=== PATIENT | male | born 1960 | race Two or more races ===

== ENCOUNTER 2017-05-18 09:55 | Emergency (ER) | payer OTHER ==
[2017-05-18 10:01] VITALS: BP 157/103; PULSE 84; TEMP 98; BMI 40.1
== END 2017-05-18 11:24 | disposition left against medical advice (07) ==
LOC: JERFT 09:55
DX: Z53.21 Procedure and treatment not carried out due to patient leaving prior to being seen by health care provider (principal)
CPT/HCPCS: 99281-25

== ENCOUNTER 2018-01-19 16:18 | Emergency (ER) | payer OTHER ==
--- NOTE | 2018-01-19 16:24 | PDOC ---
Rapid Medical Evaluation Time Seen by Provider: 01/19/18 16:19 Medical Evaluation: Allergies Allergy/AdvReac Type Severity Reaction Status Date / Time No Known Allergies Allergy Verified 05/18/17 10:01 01/19/18 16:21 The patient presents with a chief complaint of: Blood in urine for one hour. On Xarelto I have performed a brief in-person evaluation of this patient; Pertinent physical exam findings: ambulatory, in no respiratory distress, No CVA tenderness, Abdomen soft, nontender, no rebound or guarding I have ordered the following: CBC, CMP, UA, UC, PT/INR The patient will proceed to the ED for further evaluation.
[2018-01-19 16:30] VITALS: BP 143/83; PULSE 114; TEMP 98.2; BMI 48.4
[2018-01-19 16:55] LABS: BASO % 0.7 % (0-2.0); EOS % 1.8 % (0-4.5); HEMATOCRIT 46.4 % (35.4-49); HEMOGLOBIN 15.8 GM/dL (11.7-16.9); LYMPH % 11.9 % (8-40); MCH 29.4 pg (25.7-33.7); MCHC 34.1 g/dl (32.0-35.9); MEAN PLT VOLUME 9.1 fl (7.5-11.1); MONO % 9.5 % (3.8-10.2); NEUT % 76.1 % (42.8-82.8); PLATELET COUNT 231 K/MM3 (134-434); RDW 13.5 % (11.9-15.9); WHITE BLOOD COUNT 15.5 K/mm3 (4.0-10.0)
[2018-01-19 16:56] LABS: URINE APPEARANCE CLOUDY; URINE BILIRUBIN NEGATIVE (NEGATIVE); URINE BLOOD 3+ (NEGATIVE); URINE COLOR YELLOW; URINE GLUCOSE (UA) NEGATIVE (NEGATIVE); URINE KETONE NEGATIVE (NEGATIVE); URINE NITRITE NEGATIVE (NEGATIVE); URINE UROBILINOGEN NEGATIVE mg/dL (0.2-1.0)
[2018-01-19 17:15] LABS: URINE LEUK ESTERASE 3+ (NEGATIVE); URINE PROTEIN 2+ (NEGATIVE)
[2018-01-19 17:25] LABS: INR 1.22 (0.82-1.09); PROTHROMBIN TIME (PATIENT) 13.8 SEC (9.98-11.88)
[2018-01-19 17:26] LABS: ALBUMIN 3.4 g/dl (3.4-5.0); ANION GAP 11 (8-16); BILIRUBIN,TOTAL 0.4 mg/dL (0.2-1.0); BLOOD UREA NITROGEN 17 mg/dL (7-18); CALCIUM 8.6 mg/dL (8.5-10.1); CHLORIDE 100 mmol/L (98-107); CO2 28 mmol/L (21-32); CREATININE 0.9 mg/dL (0.7-1.3); GLUCOSE,RANDOM 104 mg/dL (74-106); POTASSIUM 4.1 mmol/L (3.5-5.1); SGPT/ALT 21 U/L (12-78); SODIUM 139 mmol/L (136-145); TOT PROT 7.2 g/dl (6.4-8.2)
[2018-01-19 17:27] LABS: ALK PHOS 142 U/L (45-117); SGOT/AST 15 U/L (15-37)
[2018-01-19 18:52] LABS: CALCIUM OXALATE CRYSTALS MODERATE /hpf (NONE SEEN); URINE BACTERIA RARE /hpf (NONE SEEN)
--- NOTE | 2018-01-19 20:20 | PDOC ---
History of Present Illness - General History Source: Patient Exam Limitations: No Limitations - History of Present Illness Initial Comments: 01/19/18 20:25 The patient is a year old female with a significant PMH of AFib (on Xarelto), CHF, COPD, HTN, and hyperlipidemia who presents to the emergency department with a sudden onset of dysuria and hematuria beginning approximately 1 hour ago. The patient reports he has had a similar episode of hematuria and burning sensation when he urinates in the past. He denies fevers or chills. He denies nausea, vomiting, or diarrhea. The patient denies chest pain, shortness of breath, headache and dizziness. Denies urinary frequency, urgency, or incontinence. Allergies: NKA Past surgical history: Cardiac catheter placement. Social history: Former smoker (quit 3 years ago). No reported alcohol or drug use. PCP: None reported. <Kaiden Rueda - Last Filed: 01/19/18 20:25> - General History Source: Patient <Greg Peterson - Last Filed: 01/19/18 20:28> - General Chief Complaint: Hematuria Stated Complaint: BLOOD IN URINE on XARELTO Time Seen by Provider: 01/19/18 16:19 Past History <Kaiden Rueda - Last Filed: 01/19/18 20:25> - Past Medical History Anemia: No Asthma: No Cancer: No Cardiac Disorders: Yes (A FIB) CVA: No COPD: Yes CHF: No Dementia: No Diabetes: No GI Disorders: No Disorders: No HTN: Yes Hypercholesterolemia: Yes Liver Disease: No Seizures: No Thyroid Disease: No - Surgical History Abdominal Surgery: No Appendectomy: No Cardiac Surgery: Yes (CARD CATH) Cholecystectomy: No Lung Surgery: No Neurologic Surgery: No Orthopedic Surgery: No - Immunization History Immunization Up to Date: Yes - Suicide/Smoking/Psychosocial Hx Smoking History: Never smoked Have you smoked in the past 12 months: No If you are a former smoker, when did you quit?: 3 YEARS AGO Information on smoking cessation initiated: No 'Breaking Loose' booklet given: 08/18/14 Hx Alcohol Use: No Drug/Substance Use Hx: No Substance Use Type: None <Greg Peterson - Last Filed: 01/19/18 20:28> - Past Medical History Allergies/Adverse Reactions: Allergies Allergy/AdvReac Type Severity Reaction Status Date / Time No Known Allergies Allergy Verified 01/19/18 16:30 Home Medications: Ambulatory Orders Atorvastatin Ca [Lipitor -] 40 mg PO HS 08/06/15 Digoxin [Lanoxin -] 0.25 mg PO DAILY 08/06/15 Furosemide [Lasix -] 20 mg PO DAILY 08/06/15 Lisinopril [Zestril] 2.5 mg PO DAILY 08/06/15 Metoprolol Succinate [Toprol Xl -] 175 mg PO DAILY 08/06/15 Omeprazole [Prilosec (RX)] 40 mg PO DAILY 08/06/15 Rivaroxaban [Xarelto -] 20 mg PO DAILY 08/06/15 Oxycodone HCl/Acetaminophen [Percocet 5-325 mg Tablet] 2 tab PO Q6H PRN #20 tablet MDD 8 03/30/16 levoFLOXacin [Levaquin -] 500 mg PO DAILY #7 tablet 01/19/18 Review of Systems - Review of Systems Able to Perform ROS?: Yes Comments:: 01/19/18 20:25 CONSTITUTIONAL: Absent: fever, chills, diaphoresis, generalized weakness, malaise, loss of appetite HEENT: Absent: rhinorrhea, nasal congestion, throat pain, throat swelling, difficulty swallowing, mouth swelling, ear pain, eye pain, visual Changes CARDIOVASCULAR: Absent: chest pain, syncope, palpitations, irregular heart rate, lightheadedness , peripheral edema RESPIRATORY: Absent: cough, shortness of breath, dyspnea with exertion, orthopnea, wheezing, stridor, hemoptysis GASTROINTESTINAL: Absent: abdominal pain, abdominal distension, nausea, vomiting, diarrhea, constipation, melena, hematochezia GENITOURINARY: (+) Dysuria. (+) Hematuria. Absent: dysuria, frequency, urgency, hesitancy, hematuria, flank pain, genital pain MUSCULOSKELETAL: Absent: myalgia, arthralgia, joint swelling SKIN: Absent: rash, itching, pallor HEMATOLOGIC/IMMUNOLOGIC: Absent: easy bleeding, easy bruising, lymphadenopathy, frequent infections ENDOCRINE: Absent: unexplained weight gain, unexplained weight loss, heat intolerance, cold intolerance NEUROLOGIC: Absent: headache, focal weakness or paresthesias, dizziness, unsteady gait, seizure, mental status changes, bladder or bowel incontinence PSYCHIATRIC: Absent: anxiety, depression, suicidal or homicidal ideation, hallucinations. <Kaiden Rueda - Last Filed: 01/19/18 20:25> *Physical Exam - Vital Signs Last Vital Signs Temp Pulse Resp BP Pulse Ox 98.2 F 114 H 17 143/83 98 01/19/18 16:29 01/19/18 16:29 01/19/18 16:29 01/19/18 16:29 01/19/18 16:29 - Physical Exam Comments: 01/19/18 20:25 GENERAL: Well developed, well nourished. Awake and alert. No acute distress. HEENT: Normocephalic, atraumatic. PERRLA, EOMI. No conjunctival pallor. Sclera are non- icteric. Moist mucous membranes. Oropharynx is clear. NECK: Supple. Full ROM. No JVD. Carotid pulses 2+ and symmetric, without bruits. No thyromegaly. No lymphadenopathy. CARDIOVASCULAR: Regular rate and rhythm. No murmurs, rubs, or gallops. Distal pulses are 2+ and symmetric. PULMONARY: No evidence of respiratory distress. Lungs clear to auscultation bilaterally. No wheezing, rales or rhonchi. ABDOMINAL: Soft. Non-tender. Non-distended. No rebound or guarding. No organomegaly. Normoactive bowel sounds. MUSCULOSKELETAL Normal range of motion at all joints. No bony deformities or tenderness. No CVA tenderness. EXTREMITIES: No cyanosis. No clubbing. No edema. No calf tenderness. SKIN: Warm and dry. Normal capillary refill. No rashes. No jaundice. NEUROLOGICAL: Alert, awake, appropriate. Cranial nerves 2-12 intact. No deficits to light touch and temperature in face, upper extremities and lower extremities. No motor deficits in the in face, upper extremities and lower extremities. Normoreflexic in the upper and lower extremities. Normal speech. Toes are downgoing bilaterally. Gait is normal without ataxia. PSYCHIATRIC: Cooperative. Good eye contact. Appropriate mood and affect. <Kaiden Rueda - Last Filed: 01/19/18 20:25> - Vital Signs Last Vital Signs Temp Pulse Resp BP Pulse Ox 98.2 F 114 H 17 143/83 98 01/19/18 16:29 01/19/18 16:29 01/19/18 16:29 01/19/18 16:29 01/19/18 16:29 <Greg Peterson Last Filed: 01/19/18 20:28> ED Treatment Course - LABORATORY CBC & Chemistry Diagram: 01/19/18 16:42 01/19/18 16:42 - ADDITIONAL ORDERS Additional order review: Laboratory Results 01/19/18 01/19/18 01/19/18 16:43 16:42 16:42 PT with INR 13.80 H INR 1.22 H Sodium 139 Potassium 4.1 Chloride 100 Carbon Dioxide 28 Anion Gap 11 BUN 17 D Creatinine 0.9 Creat Clearance w eGFR > 60 Random Glucose 104 Calcium 8.6 Total Bilirubin 0.4 D AST 15 ALT 21 Alkaline Phosphatase 142 H Total Protein 7.2 Albumin 3.4 Urine Color Yellow Urine Appearance Cloudy Urine pH 6.0 Ur Specific [place] 1.017 Urine Protein 2+ H Urine Glucose (UA) Negative Urine Ketones Negative Urine Blood 3+ H Urine Nitrite Negative Urine Bilirubin Negative Urine Urobilinogen Negative Ur Leukocyte Esterase 3+ H Urine WBC (Auto) 249 Urine RBC (Auto) 426 Calcium Oxalate Crystal Moderate Urine Bacteria Rare 01/19/18 16:42 RBC 5.40 MCV 86.0 MCHC 34.1 RDW 13.5 MPV 9.1 Neutrophils % 76.1 Lymphocytes % 11.9 D Monocytes % 9.5 Eosinophils % 1.8 Basophils % 0.7 <Kaiden Rueda - Last Filed: 01/19/18 20:25> - LABORATORY CBC & Chemistry Diagram: 01/19/18 16:42 01/19/18 16:42 - ADDITIONAL ORDERS Additional order review: Laboratory Results 01/19/18 01/19/18 01/19/18 16:43 16:42 16:42 PT with INR 13.80 H INR 1.22 H Sodium 139 Potassium 4.1 Chloride 100 Carbon Dioxide 28 Anion Gap 11 BUN 17 D Creatinine 0.9 Creat Clearance w eGFR > 60 Random Glucose 104 Calcium 8.6 Total Bilirubin 0.4 D AST 15 ALT 21 Alkaline Phosphatase 142 H Total Protein 7.2 Albumin 3.4 Urine Color Yellow Urine Appearance Cloudy Urine pH 6.0 Ur Specific [place] 1.017 Urine Protein 2+ H Urine Glucose (UA) Negative Urine Ketones Negative Urine Blood 3+ H Urine Nitrite Negative Urine Bilirubin Negative Urine Urobilinogen Negative Ur Leukocyte Esterase 3+ H Urine WBC (Auto) 249 Urine RBC (Auto) 426 Calcium Oxalate Crystal Moderate Urine Bacteria Rare 01/19/18 16:42 RBC 5.40 MCV 86.0 MCHC 34.1 RDW 13.5 MPV 9.1 Neutrophils % 76.1 Lymphocytes % 11.9 D Monocytes % 9.5 Eosinophils % 1.8 Basophils % 0.7 <Greg Peterson - Last Filed: 01/19/18 20:28> Medical Decision Making - Medical Decision Making 01/19/18 20:23 Dr. Peterson: The scribe's documentation has been prepared under my direction and personally reviewed by me in its entirery. I confirm that the note above accurately reflects all work, treatment, procedures, and medical decision making performed by me. Patient on Xarelto for CAD. Pt has sudden onset of hematuria. Rx Levaquin 500mg PO Pt to follow up with urology <Greg Peterson - Last Filed: 01/19/18 20:28> *DC/Admit/Observation/Transfer - Attestations Scribe Attestion: 01/19/18 20:25 Documentation prepared by Kaiden Rueda, acting as medical aide for Greg Peterson DO. <Kaiden Rueda - Last Filed: 01/19/18 20:25> - Discharge Dispostion Admit: No <Greg Peterson - Last Filed: 01/19/18 20:28> Diagnosis at time of Disposition: UTI (lower urinary tract infection), Cystitis - Discharge Dispostion Disposition: HOME Condition at time of disposition: Stable - Prescriptions Prescriptions: levoFLOXacin [Levaquin -] 500 mg PO DAILY #7 tablet - Referrals Referrals: Irvin Brown MD [Staff Physician] - - Patient Instructions Printed Discharge Instructions: DI for Urinary Tract Infection (UTI), DI for Acute Cystitis Additional Instructions: Please follow up with your doctor or the doctor referred to you in two days for re-evaluation.
== END 2018-01-19 20:30 | disposition home or self-care (01) ==
LOC: JER 16:18
DX: N30.01 Acute cystitis with hematuria (principal); I48.91 Unspecified atrial fibrillation; Z79.01 Long term (current) use of anticoagulants; I25.10 Atherosclerotic heart disease of native coronary artery without angina pectoris; I11.0 Hypertensive heart disease with heart failure; Z95.5 Presence of coronary angioplasty implant and graft; Z87.891 Personal history of nicotine dependence; J44.9 Chronic obstructive pulmonary disease, unspecified; E78.5 Hyperlipidemia, unspecified
CPT/HCPCS: 36415; 80053; 81003; 81015; 85025; 85610; 87086; 87186; 99282-25

== ENCOUNTER 2018-04-23 22:37 | Emergency (ER) | payer OTHER ==
[2018-04-23 22:44] VITALS: BP 150/69; PULSE 98; TEMP 98; BMI 41.0
--- NOTE | 2018-04-23 23:59 | PDOC ---
History of Present Illness - General Chief Complaint: Ear Problem Stated Complaint: EAR PAIN Time Seen by Provider: 04/23/18 23:11 History Source: Patient Exam Limitations: No Limitations - History of Present Illness Initial Comments: 04/24/18 00:07 Best Contact: PCP:None Pmhx: Atrial fibrillation, hypertension, gastritis Pshx: Right hernia repair Allergies: NO KNOWN DRUG ALLERGIES FH: Unknown Social Hx: Cigarettes/ denies Alcohol/ social Drugs/denies LMP: Not applicable 58-year-old male presents to the ER complaining of right ear pain. Pain is described as 7/10 sharp intermittent discomfort which is exacerbated on movement to the ear. Patient denies any fever, chills, facial pains, neck/back pains, sore throat, chest pain, shortness of breath. Patient states he was at [facility]. Patient states he was on the water ride earlier today when he got his right ear wet. No other complaints. Past History - Past Medical History Allergies/Adverse Reactions: Allergies Allergy/AdvReac Type Severity Reaction Status Date / Time No Known Allergies Allergy Verified 04/23/18 22:43 Home Medications: Ambulatory Orders Atorvastatin Ca [Lipitor -] 40 mg PO HS 08/06/15 Digoxin [Lanoxin -] 0.25 mg PO DAILY 08/06/15 Furosemide [Lasix -] 20 mg PO DAILY 08/06/15 Lisinopril [Zestril] 2.5 mg PO DAILY 08/06/15 Metoprolol Succinate [Toprol Xl -] 175 mg PO DAILY 08/06/15 Omeprazole [Prilosec (RX)] 40 mg PO DAILY 08/06/15 Rivaroxaban [Xarelto -] 20 mg PO DAILY 08/06/15 Neomycin/Polymyxn/Hc [Cortisporin Otic Suspenstion -] 5 drop OD Q6H #100 drops 04/24/18 Anemia: No Asthma: No Cancer: No Cardiac Disorders: Yes (A FIB) CVA: No COPD: Yes CHF: No Dementia: No Diabetes: No GI Disorders: No Disorders: No HTN: Yes Hypercholesterolemia: Yes Liver Disease: No Seizures: No Thyroid Disease: No - Surgical History Abdominal Surgery: No Appendectomy: No Cardiac Surgery: Yes (CARD CATH) Cholecystectomy: No Lung Surgery: No Neurologic Surgery: No Orthopedic Surgery: No - Immunization History Immunization Up to Date: Yes - Suicide/Smoking/Psychosocial Hx Smoking History: Never smoked Have you smoked in the past 12 months: No If you are a former smoker, when did you quit?: 3 YEARS AGO Information on smoking cessation initiated: No 'Breaking Loose' booklet given: 08/18/14 Hx Alcohol Use: No Drug/Substance Use Hx: No Substance Use Type: None Review of Systems - Review of Systems Able to Perform ROS?: Yes Comments:: 04/24/18 00:11 CONSTITUTIONAL: Absent: fever, chills, diaphoresis, generalized weakness, malaise, loss of appetite HEENT: +right earpain Absent: rhinorrhea, nasal congestion, throat pain, throat swelling, difficulty swallowing, mouth swelling, eye pain, visual Changes CARDIOVASCULAR: Absent: chest pain, loss of consciousness, palpitations, irregular heart rate, peripheral edema RESPIRATORY: Absent: cough, shortness of breath, dyspnea with exertion, orthopnea, wheezing, stridor, hemoptysis SKIN: Absent: rash, itching, pallor Is the patient limited Persian proficient: No *Physical Exam - Vital Signs Last Vital Signs Temp Pulse Resp BP Pulse Ox 98.0 F 98 H 16 150/69 100 04/23/18 22:42 04/23/18 22:42 04/23/18 22:42 04/23/18 22:42 04/23/18 22:42 - Physical Exam Comments: 04/24/18 00:12 GENERAL: Well developed, well nourished. Awake and alert. No acute distress. HEENT: Right ear: +swelling canal/mild TM neg erythematous/bulging Normocephalic, atraumatic. PERRLA, EOMI. No conjunctival pallor. Sclera are non- icteric. Moist mucous membranes. Oropharynx is clear. NECK: Supple. Full ROM. No JVD. Carotid pulses 2+ and symmetric, without bruits. No thyromegaly. No lymphadenopathy. SKIN: Warm and dry. Normal capillary refill. No rashes. No jaundice. *DC/Admit/Observation/Transfer Diagnosis at time of Disposition: Otitis externa Qualifiers: Otitis externa type: swimmer's ear Chronicity: acute Laterality: right Qualified Code(s): H60.331 - Swimmer's ear, right ear - Discharge Dispostion Disposition: HOME Condition at time of disposition: Stable Decision to Admit order: No - Prescriptions Prescriptions: Neomycin/Polymyxn/Hc [Cortisporin Otic Suspenstion -] 5 drop OD Q6H #100 drops - Referrals Referrals: Breezy Dwyer MD [Staff Physician] - - Patient Instructions Printed Discharge Instructions: DI for Otitis Externa Additional Instructions: Avoid getting your ear wet. Cortisporin suspension to the right ear: 5 drops every 6 hours for 7days Be sure to follow-up with the ENT: Dr. Dwyer Return back to the emergency department for severe/persistent or worsening symptoms Tylenol alternating with Motrin as needed for pain - Post Discharge Activity
[2018-04-24] MEDS ORDERED: IBUPROFEN 400 MG TABLET (FP) PO ONE ×2 (00:03→00:04)
== END 2018-04-24 00:10 | disposition home or self-care (01) ==
LOC: JERFT 22:37
DX: H60.531 Acute contact otitis externa, right ear (principal); I10 Essential (primary) hypertension; K29.70 Gastritis, unspecified, without bleeding; I48.91 Unspecified atrial fibrillation; Z79.01 Long term (current) use of anticoagulants
CPT/HCPCS: 99281-25

== ENCOUNTER 2019-03-25 09:58 | Emergency (ER) | payer OTHER ==
[2019-03-25 10:05] VITALS: BMI 32.3
--- NOTE | 2019-03-25 11:11 | PDOC ---
History of Present Illness - General Chief Complaint: Pain Stated Complaint: [place]LLY [place] PAIN Time Seen by Provider: 03/25/19 10:30 - History of Present Illness Initial Comments: 03/25/19 11:10 59 year old man with a significant PMH of AFib (on Xarelto), CHF, COPD, HTN, and hyperlipidemia who presents with 3 days of nonradiating periumbilical pain that is 7/10 and relieved with Motrin and associated with nausea and one episode of nbnb vomiting 2 days ago and shortness of breath. He states the pain came on when he was coughing. He denies any chest pain, fevers, prior abdominal surgeries, pain radiating into the groin. He is passing gas and having normal bowel movements. Past History - Past Medical History Allergies/Adverse Reactions: Allergies Allergy/AdvReac Type Severity Reaction Status Date / Time No Known Allergies Allergy Verified 03/25/19 10:05 Home Medications: Ambulatory Orders Atorvastatin Ca [Lipitor -] 40 mg PO HS 08/06/15 Digoxin [Lanoxin -] 0.25 mg PO DAILY 08/06/15 Furosemide [Lasix -] 20 mg PO DAILY 08/06/15 Lisinopril [Zestril] 2.5 mg PO DAILY 08/06/15 Metoprolol Succinate [Toprol Xl -] 175 mg PO DAILY 08/06/15 Omeprazole [Prilosec (RX)] 40 mg PO DAILY 08/06/15 Rivaroxaban [Xarelto -] 20 mg PO DAILY 08/06/15 Neomycin/Polymyxn/Hc [Cortisporin Otic Suspenstion -] 5 drop OD Q6H #100 drops 04/24/18 Anemia: No Asthma: No Cancer: No Cardiac Disorders: Yes (A FIB) CVA: No COPD: Yes CHF: No Dementia: No Diabetes: No GI Disorders: No Disorders: No HTN: Yes Hypercholesterolemia: Yes Liver Disease: No Seizures: No Thyroid Disease: No - Surgical History Abdominal Surgery: No Appendectomy: No Cardiac Surgery: Yes (CARD CATH) Cholecystectomy: No Lung Surgery: No Neurologic Surgery: No Orthopedic Surgery: No - Immunization History Immunization Up to Date: Yes - Suicide/Smoking/Psychosocial Hx Smoking History: Never smoked Have you smoked in the past 12 months: No If you are a former smoker, when did you quit?: 3 YEARS AGO Information on smoking cessation initiated: No 'Breaking Loose' booklet given: 08/18/14 Hx Alcohol Use: No Drug/Substance Use Hx: No Substance Use Type: None Review of Systems - Review of Systems Able to Perform ROS?: Yes Comments:: 03/25/19 11:26 GENERAL/CONSTITUTIONAL: No fever or chills. No weakness. HEAD, EYES, EARS, NOSE AND THROAT: No change in vision. No ear pain or discharge. No sore throat. CARDIOVASCULAR: No chest pain + shortness of breath RESPIRATORY: No cough, wheezing, or hemoptysis. GASTROINTESTINAL: + nausea, vomiting, No diarrhea or constipation. GENITOURINARY: No dysuria, frequency, or change in urination. MUSCULOSKELETAL: No joint or muscle swelling or pain. No neck or back pain. SKIN: No rash NEUROLOGIC: No headache, vertigo, loss of consciousness, or change in strength/ sensation. ENDOCRINE: No increased thirst. No abnormal weight change HEMATOLOGIC/LYMPHATIC: No anemia, easy bleeding, or history of blood clots. ALLERGIC/IMMUNOLOGIC: No hives or skin allergy. Is the patient limited Turkmen proficient: No *Physical Exam - Vital Signs Last Vital Signs Temp Pulse Resp BP Pulse Ox 98.2 F 81 18 139/74 98 03/25/19 10:02 03/25/19 10:02 03/25/19 10:02 03/25/19 10:02 03/25/19 10:02 - Physical Exam Comments: 03/25/19 11:36 GENERAL: Awake, alert, and fully oriented, in no acute distress HEAD: No signs of trauma, normocephalic, atraumatic EYES: EOMI, sclera anicteric, conjunctiva clear ENT: oropharynx clear without exudates. Moist mucosa NECK: Normal ROM, supple LUNGS: No distress, speaks full sentences, clear to auscultation bilaterally HEART: Regular rate and rhythm, normal S1 and S2, no murmurs, rubs or gallops, peripheral pulses normal and equal bilaterally. ABDOMEN: Soft, large abdomen, nontender, normoactive bowel sounds. No guarding , no rebound. No masses EXTREMITIES : Normal inspection, Normal range of motion, no edema. No clubbing or cyanosis. NEUROLOGICAL: Cranial nerves II through XII grossly intact. Normal speech, normal gait, no focal sensorimotor deficits SKIN: Warm, Dry, normal turgor, no rashes or lesions noted ED Treatment Course - LABORATORY CBC & Chemistry Diagram: 03/25/19 12:10 03/25/19 12:10 Medical Decision Making - Medical Decision Making 03/25/19 11:24 59 year old woman with a significant PMH of AFib (on Xarelto), CHF, COPD, HTN, and hyperlipidemia who presents with 3 days of nonradiating periumbilical pain that is 7/10 and relieved with Motrin and associated with nausea and shortness of breath. He states the pain came on when he was coughing. He denies any chest pain, fevers, prior abdominal surgeries, pain radiating into the groin. He is passing gas and having normal bowel movements. ED Course: consider pna vs aortic anuerysm vs umbilical hernia r/o ACS less liekly appendicitis given presentation 0 *DC/Admit/Observation/Transfer Diagnosis at time of Disposition: Elevated troponin, Elevated brain natriuretic peptide (BNP) level - Discharge Dispostion Disposition: AGAINST MEDICAL ADVICE - Referrals Referrals: David Kern MD [Primary Care Provider] - - Patient Instructions Printed Discharge Instructions: DI for Heart Attack, Heart Failure Additional Instructions: understand you are leaving against medical advice. your labs test today are abnormal for positive troponin which is concerning for acute heart attack. you are advised to stay in the hospital for treatment of this. your lungs show you have fluid congestion and back up in the lungs. you should follow up with your grounds and nursery specialist at [address] [place] [address]. you should also follow up with your primary doctor. you are encouraged to return to the ed for worsenign shortness of breath , chest pain or any concerns. continue taking your medications. - Post Discharge Activity
--- NOTE | 2019-03-25 11:36 | PDOC ---
Documentation entered by David Mendoza SCRIBE, acting as scribe for Adamaris Hidalgo MD. Adamaris Hidalgo MD: This documentation has been prepared by the Reji verde Daniel, SCRIBE, under my direction and personally reviewed by me in its entirety. I confirm that the documentation accurately reflects all work, treatment, procedures, and medical decision making performed by me. Attending Attestation - Resident Resident Name: Citlaly Tenorio - ED Attending Attestation I have performed the following: I have examined & evaluated the patient, The case was reviewed & discussed with the resident, I agree w/resident's findings & plan, Exceptions are as noted - HPI HPI: 03/25/19 11:36 59 yo M h/o afib (on xarelto), CHF, COPD/emphysema, HTN HLD here today for evaluation of periumbilical abdominal pain. The patient reports that his pain began one week ago, but became worse 3 days, notes his pain is local to the periumbilical region, is a 7/10 in severity, better with motrin, and is worse with coughing (cough productive of phlegm). He notes associated shortness of breath, nausea, and 1 episode vomiting 3 days ago. He notes having normal bowel movements and is passing gas. last bm was this am, normal. Patient denies headache, lightheadedness. Denies fever, chills. Denies chest pain. Denies diarrhea. Denies lower extremity edema. Denies urinary symptoms. Allergies: NKA Surgical history: none PCP: David Kern 03/25/19 16:30 03/25/19 16:36 - Physicial Exam PE: 03/25/19 12:07 GENERAL: Awake, alert, and fully oriented, in no acute distress HEAD: No signs of trauma EYES: PERRLA, EOMI, sclera anicteric, conjunctiva clear ENT: Auricles normal inspection, hearing grossly normal, nares patent. Moist mucosa NECK: Normal ROM, supple, no lymphadenopathy, JVD, or masses LUNGS: +wheezes in the right lung wiley. +bilateral diminished lung sounds bilateral bases. No crackles HEART: +irregular rhythm. Regular rate normal S1 and S2, no murmurs, rubs or gallops ABDOMEN: +obese. +tenderness to the left lower quadrant. +ecchymosis to the mid right abdomen. Soft, normoactive bowel sounds. No guarding, no rebound. No masses EXTREMITIES: + 2+ pitting edema. Normal range of motion. No erythema or tenderness. DP/PT pulses 2+ and symmetric. Warm and well perfused. NEUROLOGICAL: Moves all extremities. Normal speech, normal gait SKIN: Warm, Dry, normal turgor, no rashes or lesions noted. - Medical Decision Making 03/25/19 11:33 59 yo male with h/o HTN empysema, N, V, HLD afib here cough uri sxs, abd pain n/ v x 1. and sob. mild llq tenderness on abd exam, difficult exam due to body habitus. peripheral edema. scant wheezing in lungs differential hernia, diverticulitis, less likley uti, pancreatitis, gastritis. soila ct a/p cxr labs ekg trop r/o atypical angina. aaa focused ED us AAA bedside proximal aorta visualizd < 3 cm mid and distal aorta difficulty to visualize due to body habitus and bowel gas. impression : limited exam, no aaa of proximal aorta, remainder limited plan ct a/p labs reassess. will give duoneb for wheezing, 03/25/19 13:06 03/25/19 16:33 ct a/p with signs right side heart congestion, small free fluid, diverticulosis no diverticulitis, small umbilical fat containing hernia. contracted gb, chornic basilar lung hetergeneity/ emphysema. pt appears to be congested on lung exam, troponin positive. and peripheral edema. given small dose of lasix here. bnp elevated. pt refusing admission. aware of concerns for fluid overload. after lengthy discussion with family and patient, signed out AMA. 03/25/19 16:37 03/25/19 16:39 03/25/19 17:17 folder stitcher operator paged at [address] [place] [address] cardiology. pt can't remember name of folder stitcher operator. ph [phone]. awaiting call back. paged dr zavala awaiting call back 03/25/19 17:39 d/w pt folder stitcher operator Steffi Browne, will see him next week. per her pt h/o cardiac cath few years ago, nonobstructive cad, echo recently diastolic dysfunction.supposed to be taking lasix 20 mg daily. will given dose lasix 20 mg here dc ama. Heart Score/ECG Review #1 General ECG Interpretation: Normal Intervals, No acute ischemic changes Compared to previous ECG there are: Other (afib rate 89 bpm)
[2019-03-25 12:23] LABS: BASO % 0.8 % (0-2.0); HEMATOCRIT 45.2 % (35.4-49); HEMOGLOBIN 14.4 GM/dL (11.7-16.9); LYMPH % 12.5 % (8-40); MCHC 31.8 g/dl (32.0-35.9); MEAN PLT VOLUME 10.1 fl (7.5-11.1); MONO % 8.4 % (3.8-10.2); NEUT % 75.3 % (42.8-82.8); PLATELET COUNT 210 K/MM3 (134-434); RBC 5.14 M/mm3 (4.00-5.60); RDW 14.6 % (11.9-15.9); WHITE BLOOD COUNT 9.8 K/mm3 (4.0-10.0)
[2019-03-25 12:54] LABS: BILIRUBIN,TOTAL 0.5 mg/dL (0.2-1); CALCIUM 7.9 mg/dL (8.5-10.1); CREATININE 1.1 mg/dL (0.55-1.3); N-TERMINAL BNP 1581.6 pg/ml (5-125); POTASSIUM 4.4 mmol/L (3.5-5.1); TOT PROT 6.5 g/dl (6.4-8.2)
--- NOTE | 2019-03-25 13:25 | EKG ---
Test Reason : Blood Pressure : / mmHG Vent. Rate : 089 BPM Atrial Rate : 110 BPM P-R Int : 000 ms QRS Dur : 084 ms QT Int : 332 ms P-R-T Axes : 000 067 038 degrees QTc Int : 403 ms ATRIAL FIBRILLATION NONSPECIFIC T WAVE ABNORMALITY ABNORMAL ECG Confirmed by YVON GARCIA MD ([id number]) on 03/25/2019 1:25:11 PM Referred By: Confirmed By:YVON GARCIA MD
[2019-03-25 16:00] LABS: PH,URINE 6.5 (5.0-8.0); URINE APPEARANCE CLEAR; URINE BILIRUBIN NEGATIVE (NEGATIVE); URINE COLOR YELLOW; URINE GLUCOSE (UA) NEGATIVE (NEGATIVE); URINE KETONE NEGATIVE (NEGATIVE); URINE LEUK ESTERASE NEGATIVE (NEGATIVE); URINE NITRITE NEGATIVE (NEGATIVE); URINE PROTEIN NEGATIVE (NEGATIVE)
[2019-03-25] MEDS ORDERED: ASPIRIN 81 MG CHEWABLE TABLETS PO ONE (17:27)
[2019-03-25] MEDS ORDERED: FUROSEMIDE 100 MG/10 ML INJECTABLE VIAL IVPB ONE (17:28)
[2019-03-25] MEDS ORDERED: FUROSEMIDE 40 MG/4 ML INJECTABLE VIAL ONE (17:30)
[2019-03-25] MEDS ORDERED: ASPIRIN 81 MG CHEWABLE TABLETS ONE (17:30)
[2019-03-25 17:43] VITALS: BP 139/91; PULSE 85; TEMP 98
== END 2019-03-25 17:52 | disposition left against medical advice (07) ==
LOC: JERFT 09:58 → JER 09:58
PROC: 3E033GC Introduction of Other Therapeutic Substance into Peripheral Vein, Percutaneous Approach (ICD-10-PCS; principal; 2019-03-25)
DX: D68.9 Coagulation defect, unspecified (principal); R79.89 Other specified abnormal findings of blood chemistry; I48.91 Unspecified atrial fibrillation; Z79.01 Long term (current) use of anticoagulants; I10 Essential (primary) hypertension; E78.5 Hyperlipidemia, unspecified; J44.9 Chronic obstructive pulmonary disease, unspecified
CPT/HCPCS: 36415; 71046-TC-FY; 74177-TC; 80053; 81003; 83880; 84484; 85025; 93005; 93010; 99282-25

== ENCOUNTER 2019-03-28 19:50 | Inpatient (IN) | payer OTHER | END 2019-03-31 15:22 | disposition home or self-care (01) | LOC: JERBED 03-29 00:27 → JER 19:50 → J6S 03-29 11:13 ==

== ENCOUNTER 2019-04-09 21:42 | Inpatient (IN) | payer OTHER | END 2019-04-10 18:00 | disposition home or self-care (01) | LOC: JER 21:42 → JERBED 04-10 02:36 → J5S 04-10 04:12 ==

== ENCOUNTER 2019-04-21 10:20 | Inpatient (IN) | payer OTHER ==
--- NOTE | 2019-04-21 11:17 | PDOC ---
History of Present Illness - General Stated Complaint: SENT BY PCP Time Seen by Provider: 04/21/19 11:17 History Source: Patient Exam Limitations: No Limitations - History of Present Illness Initial Comments: 04/21/19 11:24 59 year old male with PMH HTN, HLD, COPD, CAD, atrial fibrillation on Xarelto, GERD, CHF sent to ED by [employer] for increasing PAUL and lower extremity swelling x2 weeks, worsening over 2 days. Pt denied fever, cough, chest pain, palpitations, lightheadedness. Pt reported his Lasix dose was increased from 20 mg daily to 40 mg daily x1 week ago. Allergies: NKDA Past History - Past Medical History Allergies/Adverse Reactions: Allergies Allergy/AdvReac Type Severity Reaction Status Date / Time No Known Allergies Allergy Verified 04/21/19 11:50 Home Medications: Ambulatory Orders Atorvastatin Ca [Lipitor] 40 mg PO HS 08/06/15 Lisinopril [Zestril] 20 mg PO DAILY 08/06/15 Metoprolol Succinate [Toprol XL -] 175 mg PO DAILY 08/06/15 Omeprazole [Prilosec (RX)] 40 mg PO DAILY 08/06/15 Rivaroxaban [Xarelto -] 20 mg PO DAILY 08/06/15 Budesonide/Formeterol Fumarate [SYMBICORT 80/4.5mcg -] 2 inh PO BID #1 cannister 03/31/19 Anemia: No Asthma: No Cancer: No Cardiac Disorders: Yes (A FIB) CVA: No COPD: Yes CHF: Yes Dementia: No Diabetes: No GI Disorders: Yes (Hernia) Disorders: No HTN: Yes Hypercholesterolemia: Yes Liver Disease: No Seizures: No Thyroid Disease: No - Surgical History Abdominal Surgery: No Appendectomy: No Cardiac Surgery: Yes (CARD CATH) Cholecystectomy: No Lung Surgery: No Neurologic Surgery: No Orthopedic Surgery: No - Immunization History Immunization Up to Date: Yes - Suicide/Smoking/Psychosocial Hx Smoking History: Never smoked Have you smoked in the past 12 months: No If you are a former smoker, when did you quit?: 2016 'Breaking Loose' booklet given: 08/18/14 Hx Alcohol Use: No Drug/Substance Use Hx: No Substance Use Type: None Review of Systems - Review of Systems Able to Perform ROS?: Yes Comments:: 06/20/19 11:22 General: denied fever, chills, generalized weakness. HEENT: denied sore throat, rhinorrhea, ear pain. Heart: admitted to lower extremity swelling. denied chest pain, palpitations, syncope, diaphoresis. Respiratory: admitted to shortness of breath. denied cough, sputum production, hemoptysis. Abdomen: denied abdominal pain, nausea, vomiting, diarrhea, constipation, blood in stool. : denied dysuria, increased urinary frequency, hematuria, urinary incontinence , flank pain. Back: denied back pain. Musculoskeletal: denied joint pain, muscle pain, joint swelling. Neurological: denied headache, dizziness, numbness, tingling, weakness. Skin: denied rash, laceration, abrasion. *Physical Exam - Physical Exam Comments: 04/21/19 11:22 Constitutional: Well-nourished, Well-developed, appearing stated age. sitting upright in bed. HEENT: head is normocephalic, atraumatic. EOMI. PERRLA. Neck: supple. Full ROM. Heart: regular rhythm. no murmurs, rubs or gallops. Lungs: bibasilar crackles bilaterally. no wheezing. speaking full sentences. no retractions. Abdomen: soft, nontender. normal bowel sounds. no rebound, guarding, masses. Extremities: peripheral pulses intact. no lower extremity edema. Neurological: CN 2-12 grossly intact. moves all four extremities. Psych: awake, alert, oriented x3. follows commands. answers questions appropriately. ED Treatment Course - LABORATORY CBC & Chemistry Diagram: 04/21/19 11:28 04/21/19 11:28 Medical Decision Making - Medical Decision Making 04/21/19 11:23 59 year old male with above PMH presented to ED for increasing PAUL and lower extremity swelling x2 weeks, worsening over the last two days. Initial Vital Signs Temp Pulse Resp BP Pulse Ox 98.1 F 105 H 18 138/72 100 04/21/19 11:25 04/21/19 11:25 04/21/19 11:25 04/21/19 11:25 04/21/19 11:25 Afebrile. Tachycardic. No tachypnea. Hypertensive. No hypoxia on room air. Labs ordered: CBC, CMP, BNP, troponin, mag Imaging ordered: CXR Medications ordered: ASA 152 mg PO chew EKG performed at 1249: rate 104, irregularly irregular rhythm, normal axis, nonspecific ST changes. Similar to prior EKG performed 03/28/19. ECHO results on paperwork brought to ED by patient 04/17: -LA/RA enlargement. -Mild mitral regurgitation, trace pulmonic regurgitation -Normal LVEF, normal RVEF Stress test results on paperwork brought to ED by patient: -04/18: emily, no cp, ecg+, no ischemia, LVEF 54% -06/15: persantine- nml perfusion, LVEF 35% Cath 10/09/15 - nonobstructive CAD, lvedp 7 04/21/19 12:07 CBC WBC 11.4 K/mm3 (4.0-10.0) H 04/21/19 11:28 RBC 4.74 M/mm3 (4.00-5.60) 04/21/19 11:28 Hgb 13.0 GM/dL (11.7-16.9) 04/21/19 11:28 Hct 40.6 % (35.4-49) 04/21/19 11:28 MCV 85.7 fl (80-96) 04/21/19 11:28 MCH 27.4 pg (25.7-33.7) 04/21/19 11:28 MCHC 32.0 g/dl (32.0-35.9) 04/21/19 11:28 RDW 15.2 % (11.9-15.9) 04/21/19 11:28 Plt Count 197 K/MM3 (134-434) 04/21/19 11:28 MPV 9.6 fl (7.5-11.1) 04/21/19 11:28 Absolute Neuts (auto) 8.8 K/mm3 (1.5-8.0) H 04/21/19 11:28 Neutrophils % 76.7 % (42.8-82.8) 04/21/19 11:28 Lymphocytes % 11.9 % (8-40) 04/21/19 11:28 Monocytes % 9.2 % (3.8-10.2) 04/21/19 11:28 Eosinophils % 1.7 % (0-4.5) 04/21/19 11:28 Basophils % 0.5 % (0-2.0) 04/21/19 11:28 Nucleated RBC % 0 % (0-0) 04/21/19 11:28 Mild leukocytosis with left shift. No anemia. pH - 7.42 - mild metabolic alkalosis 04/21/19 12:26 I spoke with pt's outpatient music therapy teacher, who recs admission for CHF - 10 pound weight gain in a few days, worsening PAUL. She reported that pt's Digoxin was stopped x1 week ago after discharge from [facility] for PAMELA. She reported that since then his heart rate has been elevated and she feels he needs better rate control and diuresis but in the setting of recent renal failure she would like him to be admitted and evaluated by Dr. King. 04/21/19 12:44 CMP Sodium 139 mmol/L (136-145) 04/21/19 11:28 Potassium 3.5 mmol/L (3.5-5.1) 04/21/19 11:28 Chloride 100 mmol/L (98-107) 04/21/19 11:28 Carbon Dioxide 33 mmol/L (21-32) H 04/21/19 11:28 Anion Gap 5 MMOL/L (8-16) L 04/21/19 11:28 BUN 29.0 mg/dL (7-18) H 04/21/19 11:28 Creatinine 1.0 mg/dL (0.55-1.3) 04/21/19 11:28 Est GFR (CKD-EPI)AfAm 96.40 04/21/19 11:28 Est GFR (CKD-EPI)NonAf 83.18 04/21/19 11:28 Random Glucose 137 mg/dL (74-106) H 04/21/19 11:28 Calcium 8.2 mg/dL (8.5-10.1) L 04/21/19 11:28 Magnesium 1.7 mg/dL (1.8-2.4) L 04/21/19 11:28 Total Bilirubin 0.8 mg/dL (0.2-1) 04/21/19 11:28 AST 26 U/L (15-37) 04/21/19 11:28 ALT 29 U/L (13-61) 04/21/19 11:28 Alkaline Phosphatase 159 U/L (45-117) H 04/21/19 11:28 Troponin I 0.09 ng/ml (0.00-0.05) H 04/21/19 11:28 B-Natriuretic Peptide 1399.7 pg/ml (5-125) H 04/21/19 11:28 Total Protein 6.7 g/dl (6.4-8.2) 04/21/19 11:28 Albumin 3.0 g/dl (3.4-5.0) L 04/21/19 11:28 No electrolyte abnormalities. No PAMELA. No transaminitis. Trop 0.09 -Will repeat BNP elevation CXR my and Dr. Recinos's view: no infiltrate. mild cephalization noted. cardiomegaly. -Pending official report Medications ordered: Lasix 40 mg IV once 04/21/19 12:51 CXR report: Chest: Shortness of breath Single AP view of the chest is submitted. Since 01/26/2019 again noted is the prominent mediastinum with elevated right hemidiaphragm and some prominent central markings. The angles are sharp. The bones and soft tissues are intact. Correlation recommended. Impression : No acute pathology. No significant change since 01/26/2019. Reported By: Breezy Dozier MD 04/21/19 1242 Results explained to patient and , recommending admission for IV diuresis and rate control. Both the patient and agree with plan for care. Pending admission. *DC/Admit/Observation/Transfer Diagnosis at time of Disposition: Elevated troponin, PAUL (dyspnea on exertion), CHF exacerbation - Discharge Dispostion Disposition: HOME Condition at time of disposition: Stable Decision to Admit order: Yes - Referrals Referrals: David Kern MD [Primary Care Provider] - - Patient Instructions - Post Discharge Activity
[2019-04-21 11:48] LABS: BASO % 0.5 % (0-2.0); EOS % 1.7 % (0-4.5); HEMATOCRIT 40.6 % (35.4-49); LYMPH % 11.9 % (8-40); MCH 27.4 pg (25.7-33.7); MEAN CELL VOLUME 85.7 fl (80-96); MEAN PLT VOLUME 9.6 fl (7.5-11.1); MONO % 9.2 % (3.8-10.2); NEUT % 76.7 % (42.8-82.8); PLATELET COUNT 197 K/MM3 (134-434); RBC 4.74 M/mm3 (4.00-5.60); RDW 15.2 % (11.9-15.9); WHITE BLOOD COUNT 11.4 K/mm3 (4.0-10.0)
[2019-04-21 11:59] LABS: VENOUS PC02 50.5 mmHg (41-51); VENOUS PH 7.42 (7.31-7.41)
[2019-04-21 12:21] LABS: INR 1.83 (0.83-1.09); PROTHROMBIN TIME (PATIENT) 21.7 SEC (9.7-13.0)
[2019-04-21 12:23] LABS: ACTIVATED PTT 45.9 SECONDS (25.2-36.5)
[2019-04-21 12:24] LABS: BILIRUBIN,TOTAL 0.8 mg/dL (0.2-1); CALCIUM 8.2 mg/dL (8.5-10.1); MAGNESIUM 1.7 mg/dL (1.8-2.4); N-TERMINAL BNP 1399.7 pg/ml (5-125); POTASSIUM 3.5 mmol/L (3.5-5.1); TOT PROT 6.7 g/dl (6.4-8.2)
[2019-04-21] MEDS ORDERED: FUROSEMIDE 40 MG/4 ML INJECTABLE VIAL IVPUSH ONE (12:29)
[2019-04-21] MEDS ORDERED: FUROSEMIDE 40 MG/4 ML INJECTABLE VIAL ONE (12:55)
--- NOTE | 2019-04-21 13:08 | CON.CARD ---
Cardiology Consult (text) - Consultation Consultation Note: Brief history for PMD: NICM on cath 2014, normal nuclear stress 2016, AF previously well controlled on digoxin and Toprol 175mg. Recently non-compliant with Lasix----> admitted w CHF and ARF. Dig stopped. Seen today by primary hand therapist, Dr. Muñoz in CHF and with rate 140s. Sent to ER for rate control, diuresis as renal fxn allows. Full consult by Dr. Pretty to follow.
[2019-04-21] MEDS ORDERED: ASPIRIN 325 MG TABLET PO ONE (13:09)
--- NOTE | 2019-04-21 13:13 | PDOC ---
Documentation entered by David Mendoza SCRIBE, acting as scribe for Butch Recinos MD. Butch Recinos MD: This documentation has been prepared by the Reji verde Daniel, SCRIBE, under my direction and personally reviewed by me in its entirety. I confirm that the documentation accurately reflects all work, treatment, procedures, and medical decision making performed by me. Attending Attestation - Resident Resident Name: OllieMaggi - ED Attending Attestation I have performed the following: I have examined & evaluated the patient, The case was reviewed & discussed with the resident, I agree w/resident's findings & plan, Exceptions are as noted - HPI HPI: 04/21/19 12:43 The patient is a 59 year old male with a past medical history of HTN, HLD, COPD , CHF, and recent PAMELA (secondary to NSAID use) here today for evaluation of worsening shortness of breath. The patient reports that he has been having worsening shortness of breath, dyspnea on exertion, and lower extremity swelling. Patient was sent in by his compensation manager as digoxin was recently stopped and pt's heart rate has not been well controlled since. Patient denies headache, lightheadedness. Denies fever, chills. Denies chest pain. Denies nausea, vomiting, diarrhea, abdominal pain. Allergies: NKA PCP: David Kern - Physicial Exam PE: 04/21/19 12:52 agree with resident exam - Medical Decision Making 04/21/19 13:10 59yo M hx multiple medical problems including CHF presents to the ED with progressive SOB DDx includes CHF vs ACS vs PE Low risk for PE as he has no recent immobility, surgery, exogenous hormone use and no personal/family hx BNP elevated consistent with CHF exacerbation Trop mildly positive, likely demand 2/2 heart failure. No EKG changes and no active chest pain. Pt given asa 325mg Pt's compensation manager request consultation by Dr. King Plan for diuresis, admission for further mgmt Heart Score/ECG Review #1 04/21/19 13:12 Twelve-lead EKG was performed and reviewed by me. Atrial fibrillation with rapid ventricular response. Rate 104. Normal axis. No ST elevations. Diffuse T- wave flattening/biphasic T waves. When compared to EKG from 03/28/2019, no significant changes.
[2019-04-21] MEDS ORDERED: ASPIRIN 325 MG ENTERIC COATED TABLET (FP) ONE (13:27)
[2019-04-21] MEDS ORDERED: MAGNESIUM SULF 50% (8.12 MEQ/2 ML-1 GM VIAL) IVPB ONE (14:19)
--- NOTE | 2019-04-21 14:25 | HP ---
CHIEF COMPLAINT: SOB x 3 days PCP: Dr. Kern Cardio Dr. Muñoz: [phone] HISTORY OF PRESENT ILLNESS: 59 y/o M with PMH HTN, HLD, COPD (on 3L 02 home; noncompliant), systolic CHF, recent PAMELA (2/2 NSAIDs), nonischemic CM cath 2014, normal nuclear stress test 2016, afib (on xarelto), who presents to the ED with SOB over the past three days. As per pt, during this time, he has felt as if he had "water in his chest and legs." Has had PAUL when walking 5-10 feet. Was able to walk a few blocks previously. For this reason, he went to see his buffing wheel former machine, Dr. Muñoz today. Was found to be in CHF exacerbation and his EKG revealed afib with RVR w/ HR into the 140's. He was subsequently recommended to come to the ED for further evaluation. During this time, he endorses a dry cough and nausea which he believes is related to his vol overload. Denies CHAN, fever, chills, diaphoresis, chest pain or pressure or changes in urinary or bowel function. Of note, pt states that he self discontinued lasix 20mg 7 months ago because he was tired of constantly urinating. He was also supposed to receive BiPAP on last admission however it was not approved by his insurance. He also self d/c home 02 because it made him feel dizzy. (he had a recent pre-post which recommended he go home on 3L 02.) states that his digoxin was d/c because of previous PAMELA. Ambulates independently at baseline. ER course was notable for: (1) asa 325mg x 1 (2) lasix 40mg IVP x 1 (3) per ED staff, he was not given rate controlling agent to avoid making CHF worse Recent Travel: denies PAST MEDICAL HISTORY: as above PAST SURGICAL HISTORY: cardiac cath 3-4 yrs ago; but will seek bariatric sx in near future Social History: Smoking: quit 2.5 yrs ago. used to smoke 2 ppd x "many years" cannot quantify Alcohol: denies Drugs: denies Family History: Mother- HTN, CHF, emphysema Brother- had AIDS; . Allergies No Known Allergies Allergy (Verified 04/21/19 11:50) HOME MEDICATIONS: Home Medications Medication Instructions Recorded Atorvastatin Ca [Lipitor] 40 mg PO HS 08/06/15 Lisinopril [Zestril] 20 mg PO DAILY 08/06/15 Metoprolol Succinate [Toprol XL -] 175 mg PO DAILY 08/06/15 Omeprazole [Prilosec (RX)] 40 mg PO DAILY 08/06/15 Rivaroxaban [Xarelto -] 20 mg PO DAILY 08/06/15 Budesonide/Formeterol Fumarate 2 inh PO BID #1 cannister 03/31/19 [SYMBICORT 80/4.5mcg -] verified w pt however home cardio changed his toprol to 200mg PO qd was also started recently on lasix 40mg PO qd by cardio REVIEW OF SYSTEMS CONSTITUTIONAL: Absent: fever, chills, diaphoresis, generalized weakness, malaise, loss of appetite, weight change HEENT: Absent: rhinorrhea, nasal congestion, throat pain, throat swelling, difficulty swallowing, mouth swelling, ear pain, eye pain, visual changes CARDIOVASCULAR: Absent: chest pain, syncope, palpitations, irregular heart rate, lightheadedness , peripheral edema RESPIRATORY: Absent: cough, shortness of breath, dyspnea with exertion, orthopnea, wheezing, stridor, hemoptysis GASTROINTESTINAL: Absent: abdominal pain, abdominal distension, nausea, vomiting, diarrhea, constipation, melena, hematochezia GENITOURINARY: Absent: dysuria, frequency, urgency, hesitancy, hematuria, flank pain, genital pain MUSCULOSKELETAL: Absent: myalgia, arthralgia, joint swelling, back pain, neck pain SKIN: Absent: rash, itching, pallor HEMATOLOGIC/IMMUNOLOGIC: Absent: easy bleeding, easy bruising, lymphadenopathy, frequent infections ENDOCRINE: Absent: unexplained weight gain, unexplained weight loss, heat intolerance, cold intolerance NEUROLOGIC: Absent: headache, focal weakness or paresthesias, dizziness, unsteady gait, seizure, mental status changes, bladder or bowel incontinence PSYCHIATRIC: Absent: anxiety, depression, suicidal or homicidal ideation, hallucinations. PHYSICAL EXAMINATION Vital Signs 04/21/19 11:25 Temperature 98.1 F Pulse Rate 105 H Respiratory 18 Rate Blood Pressure 138/72 O2 Sat by Pulse 100 Oximetry (%) GENERAL: Sitting up comfortably. in NAD HEAD: Normal with no signs of trauma. EYES: Pupils equal, round and reactive to light, extraocular movements intact, sclera anicteric, conjunctiva clear. EARS, NOSE, THROAT: Ears normal, nares patent, oropharynx clear without exudates. Moist mucous membranes. NECK: Normal range of motion, supple LUNGS: +bibasilar crackles HEART: +irregularly irreg S1 and S2 without murmur, rub or gallop. ABDOMEN: Obese, +distended, non-TTP. no guarding LOWER EXTREMITIES: 2+ pt pulses, warm, well-perfused. No calf tenderness. 2+ pitting edema b/l NEUROLOGICAL: Cranial nerves II-XII intact. PSYCHIATRIC: Cooperative. Laboratory Results 04/21/19 04/21/19 04/21/19 11:28 11:28 11:28 WBC 11.4 H RBC 4.74 Hgb 13.0 Hct 40.6 MCV 85.7 MCH 27.4 MCHC 32.0 RDW 15.2 Plt Count 197 MPV 9.6 Absolute Neuts (auto) 8.8 H Neutrophils % 76.7 Lymphocytes % 11.9 Monocytes % 9.2 Eosinophils % 1.7 Basophils % 0.5 Nucleated RBC % 0 PT with INR 21.70 H INR 1.83 H PTT (Actin FS) 45.9 H VBG pH POC VBG pCO2 POC VBG pO2 VBG HCO3 VBG O2 Sat (Hayes) VBG Base Excess Sodium 139 Potassium 3.5 Chloride 100 Carbon Dioxide 33 H Anion Gap 5 L BUN 29.0 H Creatinine 1.0 Est GFR (CKD-EPI)AfAm 96.40 Est GFR (CKD-EPI)NonAf 83.18 Random Glucose 137 H Calcium 8.2 L Magnesium 1.7 L Total Bilirubin 0.8 AST 26 ALT 29 Alkaline Phosphatase 159 H Troponin I 0.09 H B-Natriuretic Peptide 1399.7 H Total Protein 6.7 Albumin 3.0 L CXR: +prominent central markings, no effusions or infiltrates. EKG: +afib w/ RVR. rate 105bpm. no st-t wave changes ASSESSMENT/PLAN: 59 y/o M with PMH HTN, HLD, COPD (on 3L 02 home; noncompliant), systolic CHF, recent PAMELA (2/2 NSAIDs), nonischemic CM cath 2014, normal nuclear stress test 2016, afib (on xarelto), who presents to the ED with SOB over the past three days. #Acute on chronic systolic CHF exac -s/p lasix 40mg IVP x 1 in ED -will c/w lasix 40mg IVP qd. can adjust based on wt response -wts, i/o, na control 2g -f/u ECHO. last in chart 2013 -cardio consult: Dr. King, Dr. Pretty -tele monitoring #afib w/ RVR -rate improved to low 100's. should improve w/ diuresis -c/w BB toprol 175mg PO qd. -c/w xarelto -digoxin was stopped recently d/t PAMELA #Tropinemia likely 2/2 demand -0.09>0.10 . c/t trend -without chest pain currently. #HTN- controlled -c/w lisinopril, toprol #HLD -c/w atorvastatin #COPD -currently not in exacerbation; w/o wheeze -c/w symbicort -was d/c on 3L 02 previously. currently sat 100 on RA #Hypomagnesemia -repleted -c/t follow level #F/E/N no IVF at this time continue to follow lytes na controlled/cholesterol controlled diet #PPX DVT: on xarelto GI: on omeprazole #Dispo admit to tele Visit type - Emergency Visit Emergency Visit: Yes ED Registration Date: 04/21/19 Care time: The patient presented to the Emergency Department on the above date and was hospitalized for further evaluation of their emergent condition. - New Patient This patient is new to me today: Yes Date on this admission: 04/21/19 - Critical Care Critical Care patient: No
--- NOTE | 2019-04-21 15:52 | PN ---
Teaching Attending Note Name of Resident: Elsa Archuleta ATTENDING PHYSICIAN STATEMENT I saw and evaluated the patient. I reviewed the resident's note and discussed the case with the resident. I agree with the resident's findings and plan as documented. SUBJECTIVE: Improving SOB. Dry cough - no sputum/hemoptysis. No fever/chills. No CP/palpitations. OBJECTIVE: Afebrile, Hemodynamically Stable. Last Vital Signs Temp Pulse Resp BP Pulse Ox 98.1 F 91 H 17 132/72 99 04/21/19 11:25 04/21/19 15:13 04/21/19 15:13 04/21/19 15:13 04/21/19 15:13 HEENT - Atraumatic, Normocephalic. Heart - S1, S2, irregular, SM Lungs -decreased air entry at bases Abdomen - distended due to high BMI, soft, non-tender. Bowel Sounds normal. Extremities - LE edema + with venous stasis skin changes. Laboratory Results - last 24 hr 04/21/19 04/21/19 04/21/19 11:28 11:28 11:28 WBC 11.4 H RBC 4.74 Hgb 13.0 Hct 40.6 MCV 85.7 MCH 27.4 MCHC 32.0 RDW 15.2 Plt Count 197 MPV 9.6 Absolute Neuts (auto) 8.8 H Neutrophils % 76.7 Lymphocytes % 11.9 Monocytes % 9.2 Eosinophils % 1.7 Basophils % 0.5 Nucleated RBC % 0 PT with INR 21.70 H INR 1.83 H PTT (Actin FS) 45.9 H VBG pH POC VBG pCO2 POC VBG pO2 VBG HCO3 VBG O2 Sat (Hayes) VBG Base Excess Sodium 139 Potassium 3.5 Chloride 100 Carbon Dioxide 33 H Anion Gap 5 L BUN 29.0 H Creatinine 1.0 Est GFR (CKD-EPI)AfAm 96.40 Est GFR (CKD-EPI)NonAf 83.18 Random Glucose 137 H Calcium 8.2 L Magnesium 1.7 L Total Bilirubin 0.8 AST 26 ALT 29 Alkaline Phosphatase 159 H Troponin I 0.09 H B-Natriuretic Peptide 1399.7 H Total Protein 6.7 Albumin 3.0 L 04/21/19 04/21/19 11:38 14:30 WBC RBC Hgb Hct MCV MCH MCHC RDW Plt Count MPV Absolute Neuts (auto) Neutrophils % Lymphocytes % Monocytes % Eosinophils % Basophils % Nucleated RBC % PT with INR INR PTT (Actin FS) VBG pH 7.42 H POC VBG pCO2 50.5 POC VBG pO2 55.0 H VBG HCO3 31.9 H VBG O2 Sat (Hayes) 84.9 H VBG Base Excess 6.6 H Sodium Potassium Chloride Carbon Dioxide Anion Gap BUN Creatinine Est GFR (CKD-EPI)AfAm Est GFR (CKD-EPI)NonAf Random Glucose Calcium Magnesium Total Bilirubin AST ALT Alkaline Phosphatase Troponin I 0.10 H B-Natriuretic Peptide Total Protein Albumin Current Medications Generic Name Dose Route Start Last Admin Trade Name Freq PRN Reason Stop Dose Admin Atorvastatin Calcium 40 mg 04/21/19 22:00 Lipitor - PO HS [facility] Budesonide/Formoterol Fumarate 2 puff 04/21/19 22:00 Symbicort 80/4.5mcg - IH BID [facility] Furosemide 40 mg 04/22/19 10:00 Lasix Injection - IVPUSH DAILY [facility] Lisinopril 20 mg 04/22/19 10:00 Prinivil PO DAILY [facility] Metoprolol Succinate 100 mg/ 175 mg 04/22/19 10:00 Metoprolol Succinate 50 mg/ PO Metoprolol Succinate 25 mg DAILY [facility] Pantoprazole Sodium 40 mg 04/22/19 10:00 Protonix - PO DAILY [facility] Rivaroxaban 20 mg 04/22/19 10:00 Xarelto PO DAILY [facility] Home Medications Medication Instructions Recorded Atorvastatin Ca [Lipitor] 40 mg PO HS 08/06/15 Lisinopril [Zestril] 20 mg PO DAILY 08/06/15 Metoprolol Succinate [Toprol XL -] 175 mg PO DAILY 08/06/15 Omeprazole [Prilosec (RX)] 40 mg PO DAILY 08/06/15 Rivaroxaban [Xarelto -] 20 mg PO DAILY 08/06/15 Budesonide/Formeterol Fumarate 2 inh PO BID #1 cannister 03/31/19 [SYMBICORT 80/4.5mcg -] ASSESSMENT AND PLAN: 59 year old male with HTN, HLD, CRF sec to COPD (on 3L O2 at home, noncompliant) , GERD, Chronic Systolic CHF sec to non-ischemic CM (cath 2014), normal nuclear stress test 2016, Atrial Fibrillation (on xarelto), presents to the ED with increasing SOB, PAUL, and LE edema, worsening over the past three days. 1. Acute on Chronic systolic CHF exacerbation Secondary to non-compliance with Lasix. BNP 1399, tropI 0.09 IV Lasix diuresis Echo Cardiology consulted. Telemonitoring. Daily weight, I/Os. 2. Troponin egression - likely at baseline secondary to cardiomyopathy. Serial TropI measurements. Cardiology consult to evaluate for possible ischemia 3. Atrial Fibrillation with RVR HR improving with diuresis Digoxin recently discontinued. Continue Toprol and Xarelto. 4. HTN - Continue Lisinopril and Toprol XL. 5. HLD - Continue Atorvastatin 6. CRF sec to COPD - Stable, no evidence of exacerbation Chronically non-compliant with home O2. Continue Symbicort. 7. GERD - Continue PPI. 8. Hypomagnesemia - will replete. DVT Px - On Xarelto
--- NOTE | 2019-04-21 16:37 | CON.CARD ---
Consult Consult Specialty:: Cardiology Referred by:: Medicine Reason for Consultation:: CHF - History of Present Illness Chief Complaint: shortness of breath, edema History of Present Illness: 59M h/o HTN, HLD, COPD on 3L home O2, chronic systolic HF, NICM s/p cath 2014 nl nuc stress 2017, afib on xarelto p/w dyspnea. Has been feeling sob for 3 days, felt bad if walking 5-10 feet so came to ER. Sees Dr. Muñoz for cardiology, saw her today and he was in afibv with RVR HR 140s with CHF exac, referred to eval. Reviewed IV lasix and feels better. Was supposed ot be on lasix at home, wasn't taking, has not been compliant with home O2 or Bipap. - Past Medical History Cardio/Vascular: Yes: AFIB, CHF, HTN. No: Aneurysm, Aortic Insufficiency, Aortic Stenosis, CAD, Deep Vein Thrombosis, Hyperlipdemia, AL, Mitral Insufficiency, Mitral Stenosis, Murmur, Pulmonary Hypertension, Other - Alcohol/Substance Use Hx Alcohol Use: No - Smoking History Smoking history: Never smoked Have you smoked in the past 12 months: No If you are a former smoker, when did you quit?: 2016 Home Medications - Allergies Allergies/Adverse Reactions: Allergies Allergy/AdvReac Type Severity Reaction Status Date / Time No Known Allergies Allergy Verified 04/21/19 11:50 - Home Medications Home Medications: Ambulatory Orders Atorvastatin Ca [Lipitor] 40 mg PO HS 08/06/15 Lisinopril [Zestril] 20 mg PO DAILY 08/06/15 Metoprolol Succinate [Toprol XL -] 175 mg PO DAILY 08/06/15 Omeprazole [Prilosec (RX)] 40 mg PO DAILY 08/06/15 Rivaroxaban [Xarelto -] 20 mg PO DAILY 08/06/15 Budesonide/Formeterol Fumarate [SYMBICORT 80/4.5mcg -] 2 inh PO BID #1 cannister 03/31/19 Furosemide [Lasix] 40 mg PO DAILY 04/21/19 Family Disease History - Family Disease History Family History: Unremarkable Review of Systems - Review of Systems Constitutional: reports: No Symptoms Eyes: reports: No Symptoms HENT: reports: No Symptoms Neck: reports: No Symptoms Cardiovascular: reports: No Symptoms Respiratory: reports: No Symptoms Gastrointestinal: reports: No Symptoms Genitourinary: reports: No Symptoms Musculoskeletal: reports: No Symptoms Integumentary: reports: No Symptoms Neurological: reports: No Symptoms Endocrine: reports: No Symptoms Hematology/Lymphatic: reports: No Symptoms Psychiatric: reports: No Symptoms Vital Signs: Vital Signs Temperature 98.1 F 04/21/19 11:25 Pulse Rate 91 H 04/21/19 15:13 Respiratory Rate 17 04/21/19 15:13 Blood Pressure 132/72 04/21/19 15:13 O2 Sat by Pulse Oximetry (%) 99 04/21/19 15:13 Constitutional: Yes: Well Nourished, No Distress, Calm Eyes: Yes: Conjunctiva Clear, EOM Intact HENT: Yes: Atraumatic, Normocephalic Neck: Yes: Supple, Trachea Midline Respiratory: Yes: Regular, On Nasal O2, Rales Gastrointestinal: Yes: Normal Bowel Sounds, Soft Cardiovascular: Yes: Tachycardia, Pulse Irregular JVD: Yes Carotid Bruit: No PMI: Non-Displaced Heart Sounds: Yes: S1, S2 Musculoskeletal: No: Back Pain Extremities: No: Cold Edema: Yes Edema: LLE: 1+, RLE: 1+ Peripheral Pulses WNL: Yes Peripheral Pulses: 2+ Left Doralis Pedis, 2+ Right Dorsalis Pedis Integumentary: No: Jaundice Neurological: Yes: Alert, Oriented Psychiatric: No: Agitated - Other Data Labs, Other Data: CBC, BMP 04/21/19 11:28 04/21/19 11:28 INR, PTT INR 1.83 (0.83-1.09) H 04/21/19 11:28 Troponin, BNP 04/21/19 04/21/19 11:28 14:30 Troponin I 0.09 H 0.10 H B-Natriuretic Peptide 1399.7 H Troponin, BNP 04/21/19 04/21/19 11:28 14:30 Troponin I 0.09 H 0.10 H B-Natriuretic Peptide 1399.7 H Assessment/Plan tele: afib rate 100s, occ 120s-140s CXR: no acute process Acute on chronic systolic HF, NICM, shortness of breath - not compliant with lasix at home, not using home O2 or BiPap appropriately - improved with IV lasix - continue - continue metoprolol, lisinopril - monitor daily weights, lytes, Cr - echo ordered Afib - rate stable currently - monitoring on tele - digoxin recently stopped due to PAMELA - cont metoprolol - cont xarelto HTN - cont home meds elevated trop - indeterminate range, flat trend - likely demand in setting of CHF HLD - cont statin COPD - manage per primary
[2019-04-21 17:06] VITALS: BMI 43.9
[2019-04-21] MEDS ORDERED: ATORVASTATIN CA 40 MG TABLET (FP) PO SCH (22:00)
[2019-04-21] MEDS: BUDESONIDE/FORMETEROL FUMARATE 80/4.5 mcg INHALER IH SCH (22:42)
[2019-04-22 07:17] LABS: BASO % 0.7 % (0-2.0); EOS % 3.2 % (0-4.5); HEMATOCRIT 40.3 % (35.4-49); LYMPH % 10.9 % (8-40); MCH 27.5 pg (25.7-33.7); MCHC 32.3 g/dl (32.0-35.9); MEAN CELL VOLUME 85.2 fl (80-96); MEAN PLT VOLUME 9.6 fl (7.5-11.1); MONO % 8.6 % (3.8-10.2); NEUT % 76.6 % (42.8-82.8); PLATELET COUNT 186 K/MM3 (134-434); RBC 4.74 M/mm3 (4.00-5.60); RDW 15.5 % (11.9-15.9); WHITE BLOOD COUNT 10.4 K/mm3 (4.0-10.0)
[2019-04-22 07:31] LABS: BLOOD UREA NITROGEN 28.2 mg/dL (7-18); CALCIUM 8.3 mg/dL (8.5-10.1); POTASSIUM 3.9 mmol/L (3.5-5.1)
[2019-04-22] MEDS ORDERED: metoPROLOL SUCCINATE 25 MG TAB.SR.24H (FP) ONE (09:08)
--- NOTE | 2019-04-22 09:29 | PN ---
Progress Note, Physician Chief Complaint: feeling better Down 1 lb TELE: AF at times in 130s History of Present Illness: denies CP, SOB - Current Medication List Current Medications: Active Medications Atorvastatin Calcium (Lipitor -) 40 mg PO HS [facility] Last Admin: 04/21/19 22:39 Dose: 40 mg Budesonide/Formoterol Fumarate (Symbicort 80/4.5mcg -) 2 puff IH BID [facility] Last Admin: 04/21/19 22:42 Dose: Not Given Furosemide (Lasix Injection -) 40 mg IVPUSH DAILY [facility] Lisinopril (Prinivil) 20 mg PO DAILY [facility] Metoprolol Succinate 100 mg/Metoprolol Succinate 50 mg/Metoprolol Succinate 25 mg 175 mg PO DAILY [facility] Pantoprazole Sodium (Protonix -) 40 mg PO DAILY [facility] Rivaroxaban (Xarelto) 20 mg PO DAILY [facility] - Objective Vital Signs: Vital Signs Temperature 97.7 F 04/22/19 06:00 Pulse Rate 102 H 04/22/19 06:00 Respiratory Rate 20 04/22/19 06:00 Blood Pressure 117/86 04/22/19 06:00 O2 Sat by Pulse Oximetry (%) 95 04/21/19 20:15 Constitutional: Yes: No Distress, Calm Eyes: Yes: Conjunctiva Clear Cardiovascular: Yes: Pulse Irregular Respiratory: Yes: CTA Bilaterally Gastrointestinal: Yes: Soft Edema: Yes Edema: LLE: 1+, RLE: 1+ Neurological: Yes: Alert, Oriented Labs: CBC, BMP 04/22/19 06:30 04/22/19 06:30 INR, PTT INR 1.83 (0.83-1.09) H 04/21/19 11:28 - ....Imaging EKG: Image Reviewed Assessment/Plan Assessment/Plan tele: afib rate 100s, occ 120s-140s CXR: no acute process Acute on chronic systolic HF, NICM, shortness of breath: - not compliant with lasix at home, not using home O2 or BiPap appropriately - improved with IV lasix - continue - continue metoprolol, lisinopril - monitor daily weights, lytes, Cr - echo ordered Afib: - rates still not optimized. Titrate Toprol 200mg - monitoring on tele - digoxin recently stopped due to PAMELA - cont metoprolol - cont xarelto HTN: - cont home meds Elevated trop: - indeterminate range, flat trend - likely demand in setting of CHF HLD - cont statin COPD - manage per primary
[2019-04-22] MEDS ORDERED: PANTOPRAZOLE 40 MG TABLET (FP) PO SCH (10:00)
[2019-04-22] MEDS ORDERED: LISINOPRIL 20 MG PO SCH (10:00)
[2019-04-22] MEDS ORDERED: FUROSEMIDE 40 MG/4 ML INJECTABLE VIAL IVPUSH SCH (10:00)
[2019-04-22] MEDS ORDERED: metoPROLOL SUCCINATE 25 MG TAB.SR.24H (FP) PO SCH (10:00)
[2019-04-22] MEDS ORDERED: LISINOPRIL 20 MG TABLET (FP) PO SCH (10:00)
[2019-04-22] MEDS ORDERED: METOPROLOL SUCCINATE PO SCH (10:00)
[2019-04-22] MEDS ORDERED: RIVAROXABAN 20 MG TABLET PO SCH ×2 (10:00)
[2019-04-22] MEDS ORDERED: PATIENT'S OWN MEDICATION (NON-FORMULARY) (Omeprazole [Prilosec (Rx)] 40 MG) PO SCH (10:00)
--- NOTE | 2019-04-22 10:32 | ECHO ---
Name: FAUZIA MOSELEY, JR Exam:Adult Echocardiogram Study Date: 04/22/2019 07:28 AM Age: 59 yrs Reason For Study: CHF Height: 66 in Weight: 271 lb BSA: 2.3 m2 MMode/2D Measurements & Calculations IVSd: 1.4 cm Ao root diam: 2.3 cm LVIDd: 4.9 cm LA dimension: 4.7 cm LVIDs: 3.3 cm LVPWd: 0.99 cm EDV(Teich): 113.6 ml LVOT diam: 2.0 cm ESV(Teich): 43.0 ml LAV (MOD-bp): 73.2 ml Doppler Measurements & Calculations MV E max manjinder: 117.0 cm/sec Ao V2 max: 137.1 cm/sec MV dec time: 0.18 sec Ao max P.5 mmHg LILIA(V,D): 1.8 cm2 LV V1 max P.3 mmHg MR max manjinder: 313.6 cm/sec LV V1 max: 76.6 cm/sec MR max P.7 mmHg TR max manjinder: 306.4 cm/sec PA V2 max: 101.8 cm/sec TR max P.9 mmHg PA max P.1 mmHg Med Peak E' Manjinder: 8.3 cm/sec PI Vmax: 233.5 cm/sec Med E/e': 14.2 Lat Peak E' Manjinder: 10.1 cm/sec Lat E/e': 11.6 Left Ventricle Ejection Fraction = 40-45%. Septal motion is consistent with conduction abnormality. Right Ventricle The right ventricle is moderate to severely dilated. The right ventricular systolic function is moder ately reduced. Atria The left atrium is moderately dilated. The right atrium is mildly dilated. Mitral Valve The mitral valve is normal in structure and function. No significant mitral valve stenosis. There is mild mitral regurgitation. Tricuspid Valve The tricuspid valve is normal in structure and function. There is moderate tricuspid regurgitation. R ight ventricular systolic pressure is elevated at 40-50mmHg. Aortic Valve There is mild aortic sclerosis.;. No hemodynamically significant valvular aortic stenosis. No aortic regurgitation is present. Pulmonic Valve The pulmonic valve is not well seen, but is grossly normal. There is no pulmonic valvular stenosis. M ild pulmonic valvular regurgitation. Great Vessels The aortic root is normal size. Pericardium/Pleura There is no pericardial effusion. Interpretation Summary Septal motion is consistent with conduction abnormality. Ejection Fraction = 40-45%. The right ventricle is moderate to severely dilated. The right ventricular systolic function is moderately reduced. The left atrium is moderately dilated. The right atrium is mildly dilated. There is mild mitral regurgitation. There is moderate tricuspid regurgitation. Right ventricular systolic pressure is elevated at 40-50mmHg. There is mild aortic sclerosis.; There is no pericardial effusion. MD Marcos *Fernando 04/22/2019 10:31 AM
[2019-04-22] MEDS: BUDESONIDE/FORMETEROL FUMARATE 80/4.5 mcg INHALER IH SCH (10:42)
--- NOTE | 2019-04-22 13:51 | EKG ---
Test Reason : Blood Pressure : / mmHG Vent. Rate : 104 BPM Atrial Rate : 110 BPM P-R Int : 000 ms QRS Dur : 090 ms QT Int : 358 ms P-R-T Axes : 000 066 029 degrees QTc Int : 470 ms POOR DATA QUALITY, INTERPRETATION MAY BE ADVERSELY AFFECTED ATRIAL FIBRILLATION WITH RAPID VENTRICULAR RESPONSE ABNORMAL ECG WHEN COMPARED WITH ECG OF 28-MAR-2019 21:12, NO SIGNIFICANT CHANGE WAS FOUND Confirmed by YVON GARCIA MD ([id number]) on 04/22/2019 1:51:01 PM Referred By: Confirmed By:YVON GARCIA MD
--- NOTE | 2019-04-22 14:10 | PN ---
Physical Exam: SUBJECTIVE: [facility] OBJECTIVE: Vital Signs Temperature 97.8 F 04/22/19 10:00 Pulse Rate 115 H 04/22/19 10:00 Respiratory Rate 20 04/22/19 10:00 Blood Pressure 138/72 04/22/19 10:00 O2 Sat by Pulse Oximetry (%) 98 04/22/19 09:00 GENERAL: AAOX 3 . in NAD . +R hand tremor HEENT: AT/NC. Dry mucus membranes. NECK: Normal range of motion, supple LUNGS: Breath sounds equal, clear to auscultation bilaterally. No wheezes, and no crackles. No accessory muscle use. HEART: Regular rate and rhythm, normal S1 and S2 without murmur, rub or gallop. ABDOMEN: Soft, nontender, not distended, normoactive bowel sounds MUSCULOSKELETAL: +decr ROM LE 2/2 weakness. no CVA tenderness. LOWER EXTREMITIES: 2+ pt pulses, warm, well-perfused. No calf tenderness. No peripheral edema. NEUROLOGICAL: Cranial nerves II-XII intact. CBCD WBC 10.4 K/mm3 (4.0-10.0) H 04/22/19 06:30 RBC 4.74 M/mm3 (4.00-5.60) 04/22/19 06:30 Hgb 13.0 GM/dL (11.7-16.9) 04/22/19 06:30 Hct 40.3 % (35.4-49) 04/22/19 06:30 MCV 85.2 fl (80-96) 04/22/19 06:30 MCHC 32.3 g/dl (32.0-35.9) 04/22/19 06:30 RDW 15.5 % (11.9-15.9) 04/22/19 06:30 Plt Count 186 K/MM3 (134-434) 04/22/19 06:30 MPV 9.6 fl (7.5-11.1) 04/22/19 06:30 CMP Sodium 138 mmol/L (136-145) 04/22/19 06:30 Potassium 3.9 mmol/L (3.5-5.1) 04/22/19 06:30 Chloride 99 mmol/L (98-107) 04/22/19 06:30 Carbon Dioxide 35 mmol/L (21-32) H 04/22/19 06:30 Anion Gap 5 MMOL/L (8-16) L 04/22/19 06:30 BUN 28.2 mg/dL (7-18) H 04/22/19 06:30 Creatinine 1.0 mg/dL (0.55-1.3) 04/22/19 06:30 Calcium 8.3 mg/dL (8.5-10.1) L 04/22/19 06:30 Total Bilirubin 0.8 mg/dL (0.2-1) 04/21/19 11:28 AST 26 U/L (15-37) 04/21/19 11:28 ALT 29 U/L (13-61) 04/21/19 11:28 Alkaline Phosphatase 159 U/L (45-117) H 04/21/19 11:28 Total Protein 6.7 g/dl (6.4-8.2) 04/21/19 11:28 Albumin 3.0 g/dl (3.4-5.0) L 04/21/19 11:28 Active Medications Atorvastatin Calcium (Lipitor -) 40 mg PO HS [facility] Last Admin: 04/21/19 22:39 Dose: 40 mg Budesonide/Formoterol Fumarate (Symbicort 80/4.5mcg -) 2 puff IH BID [facility] Last Admin: 04/22/19 10:42 Dose: 2 puff Furosemide (Lasix Injection -) 40 mg IVPUSH DAILY [facility] Last Admin: 04/22/19 10:41 Dose: 40 mg Lisinopril (Prinivil) 20 mg PO DAILY [facility] Last Admin: 04/22/19 10:41 Dose: 20 mg Metoprolol Succinate (Toprol Xl -) 200 mg PO DAILY [facility] Last Admin: 04/22/19 10:40 Dose: 200 mg Pantoprazole Sodium (Protonix -) 40 mg PO DAILY [facility] Last Admin: 04/22/19 10:41 Dose: 40 mg Rivaroxaban (Xarelto) 20 mg PO DAILY@1800 [facility] ASSESSMENT/PLAN:
--- NOTE | 2019-04-22 14:12 | PN ---
Teaching Attending Note Name of Resident: Carli Hope ATTENDING PHYSICIAN STATEMENT I saw and evaluated the patient. I reviewed the resident's note and discussed the case with the resident. I agree with the resident's findings and plan as documented. SUBJECTIVE: SOB resolved. No orthopnea/PND. No fever/chills. No CP/palpitations. OBJECTIVE: Afebrile, Hemodynamically Stable. Last Vital Signs Temp Pulse Resp BP Pulse Ox 97.8 F 115 H 20 138/72 98 04/22/19 10:00 04/22/19 10:00 04/22/19 10:04/22/19 10:00 04/22/19 09:00 HEENT - Atraumatic, Normocephalic. Heart - S1, S2, irregular, SM Lungs -decreased air entry at bases Abdomen - distended due to high BMI, soft, non-tender. Bowel Sounds normal. Extremities - LE edema + with venous stasis skin changes. Laboratory Results - last 24 hr 04/21/19 04/21/19 04/22/19 14:30 20:00 06:30 WBC 10.4 H RBC 4.74 Hgb 13.0 Hct 40.3 MCV 85.2 MCH 27.5 MCHC 32.3 RDW 15.5 Plt Count 186 MPV 9.6 Absolute Neuts (auto) 8.0 Neutrophils % 76.6 Lymphocytes % 10.9 Monocytes % 8.6 Eosinophils % 3.2 D Basophils % 0.7 Nucleated RBC % 0 Sodium Potassium Chloride Carbon Dioxide Anion Gap BUN Creatinine Est GFR (CKD-EPI)AfAm Est GFR (CKD-EPI)NonAf Random Glucose Calcium Phosphorus Magnesium Troponin I 0.10 H 0.10 H 04/22/19 06:30 WBC RBC Hgb Hct MCV MCH MCHC RDW Plt Count MPV Absolute Neuts (auto) Neutrophils % Lymphocytes % Monocytes % Eosinophils % Basophils % Nucleated RBC % Sodium 138 Potassium 3.9 Chloride 99 Carbon Dioxide 35 H Anion Gap 5 L BUN 28.2 H Creatinine 1.0 Est GFR (CKD-EPI)AfAm 96.40 Est GFR (CKD-EPI)NonAf 83.18 Random Glucose 116 H Calcium 8.3 L Phosphorus 4.0 Magnesium 2.0 Troponin I Current Medications Generic Name Dose Route Start Last Admin Trade Name Freq PRN Reason Stop Dose Admin Atorvastatin Calcium 40 mg 04/21/19 22:00 04/21/19 22:39 Lipitor - PO 40 mg HS [facility] Administration Budesonide/Formoterol Fumarate 2 puff 04/21/19 22:00 04/22/19 10:42 Symbicort 80/4.5mcg - IH 2 puff BID [facility] Administration Furosemide 40 mg 04/22/19 10:00 04/22/19 10:41 Lasix Injection - IVPUSH 40 mg DAILY [facility] Administration Lisinopril 20 mg 04/22/19 10:00 04/22/19 10:41 Prinivil PO 20 mg DAILY [facility] Administration Metoprolol Succinate 200 mg 04/22/19 10:00 04/22/19 10:40 Toprol Xl - PO 200 mg DAILY [facility] Administration Pantoprazole Sodium 40 mg 04/22/19 10:00 04/22/19 10:41 Protonix - PO 40 mg DAILY [facility] Administration Rivaroxaban 20 mg 04/22/19 10:00 Xarelto PO DAILY@1800 [facility] ASSESSMENT AND PLAN: 59 year old male with HTN, HLD, CRF sec to COPD (on 3L O2 at home, noncompliant) , GERD, Chronic Systolic CHF sec to non-ischemic CM (cath 2014), normal nuclear stress test 2016, Atrial Fibrillation (on xarelto), presents to the ED with increasing SOB, PAUL, and LE edema, worsening over the past three days. 1. Acute on Chronic systolic CHF exacerbation Secondary to non-compliance with Lasix. BNP 1399, tropI 0.09 IV Lasix diuresis succesful Echo shows reduced LV function, EF 40-45% with RV dilatation Cardiology consulted. Medically stable for discharge - will resume home dose Lasix. Cardio out- patient follow up. 2. Troponin egression - likely at baseline secondary to cardiomyopathy. Serial TropI measurements flat. Cardiology consulted - no need for ACS treatment. 3. Atrial Fibrillation with RVR HR improving with diuresis Digoxin recently discontinued. Continue Toprol (dose increased to 200mg) and Xarelto. 4. HTN - Continue Lisinopril and Toprol XL. 5. HLD - Continue Atorvastatin 6. CRF sec to COPD - Stable, no evidence of exacerbation Chronically non-compliant with home O2. Importance of compliance stressed. Continue Symbicort. 7. GERD - Continue PPI. 8. Hypomagnesemia - will replete. Medically stable for discharge. Importance of Medication compliance stressed, including Lasix. Cardiology out-patient follow up.
--- NOTE | 2019-04-22 14:52 | DS ---
Physical Exam: SUBJECTIVE: Patient seen and examined at bedside. No acute events overnight. OBJECTIVE: Vital Signs Period Temp Pulse Resp BP Sys/Nichols Pulse Ox Last 24 Hr 97.7 F-98.3 F 91-115 17-22 106-138/72-86 95-99 PHYSICAL EXAM GENERAL: Sitting up comfortably. in NAD HEAD: Normal with no signs of trauma. EYES: Pupils equal, round and reactive to light, extraocular movements intact, sclera anicteric, conjunctiva clear. EARS, NOSE, THROAT: Ears normal, nares patent, oropharynx clear without exudates. Moist mucous membranes. NECK: Normal range of motion, supple LUNGS: +bibasilar crackles HEART: +irregularly irreg S1 and S2 without murmur, rub or gallop. ABDOMEN: Obese, +distended, non-TTP. no guarding LOWER EXTREMITIES: 2+ pt pulses, warm, well-perfused. No calf tenderness. 2+ pitting edema b/l NEUROLOGICAL: Cranial nerves II-XII intact. PSYCHIATRIC: Cooperative. LABS Laboratory Results - last 24 hr 04/21/19 04/21/19 04/22/19 14:30 20:00 06:30 WBC 10.4 H RBC 4.74 Hgb 13.0 Hct 40.3 MCV 85.2 MCH 27.5 MCHC 32.3 RDW 15.5 Plt Count 186 MPV 9.6 Absolute Neuts (auto) 8.0 Neutrophils % 76.6 Lymphocytes % 10.9 Monocytes % 8.6 Eosinophils % 3.2 D Basophils % 0.7 Nucleated RBC % 0 Sodium Potassium Chloride Carbon Dioxide Anion Gap BUN Creatinine Est GFR (CKD-EPI)AfAm Est GFR (CKD-EPI)NonAf Random Glucose Calcium Phosphorus Magnesium Troponin I 0.10 H 0.10 H 04/22/19 06:30 WBC RBC Hgb Hct MCV MCH MCHC RDW Plt Count MPV Absolute Neuts (auto) Neutrophils % Lymphocytes % Monocytes % Eosinophils % Basophils % Nucleated RBC % Sodium 138 Potassium 3.9 Chloride 99 Carbon Dioxide 35 H Anion Gap 5 L BUN 28.2 H Creatinine 1.0 Est GFR (CKD-EPI)AfAm 96.40 Est GFR (CKD-EPI)NonAf 83.18 Random Glucose 116 H Calcium 8.3 L Phosphorus 4.0 Magnesium 2.0 Troponin I HOSPITAL COURSE: Date of Admission:04/21/19 IMAGING: * CXR: No acute pathology. * ECHO: Septal motion c/w conduction abnormality. EF 40-45%. RV mod to severely dilated. RV systolic fxn mod reduced. LA mod dilated. RA mildly dilated. Mild MR , mod TR. RV sys pressure elevated at 40-50 mmHg. Mild aortic sclerosis. No pericardial effusion. 59 y/o M with PMH HTN, HLD, COPD (on 3L 02 home; noncompliant), systolic CHF, recent PAMELA (2/2 NSAIDs), nonischemic CM cath 2014, normal nuclear stress test 2016, afib (on xarelto), presented to the ED with SOB over the past three days found to have an acute CHF exacerbation due to medication non-adherence. Pt was admitted to tele and monitored overnight. CXR was done that did not show acute pathology. Lab work showed slightly elevated trops likely 2/2 cardiomyopathy. Pt was seen by cardio with no need for ACS treatment. He was given IV Lasix with symptomatic improvement. Pt's HR was also optimized with increased dosage of Toprol. Echo was done; results noted above. During pt's hospital stay, his symptoms improved and was counseled on the importance of medication compliance. He was discharged home and advised to follow up with his PCP and ammunition specialist. He was also discharged on increased dose of Toprol per cardio. Date of Discharge: 04/22/19 Minutes to complete discharge: 35 Discharge Summary Reason For Visit: ACUTE ON CHRONIC CHF,DYSPNEA ON EXERTION Current Active Problems CHF exacerbation (Acute) Dyspnea on exertion (Acute) Elevated troponin (Acute) Condition: Improved - Instructions Diet, Activity, Other Instructions: You were sent to the hospital by your ammunition specialist for an abnormal heart rhythm with an elevated heart rate. In addition, you had complaints of shortness of breath. You were seen by the ammunition specialist in the hospital and given medication to slow down your heart rate. During your stay your were also given a water pill to help relieve your shortness of breath. An echocardiogram (ultrasound of the heart) was done that showed dysfunction of your heart, but no need for emergent intervention. Your symptoms improved. You are being discharged home. It is VERY important that you always take your medications without skipping any doses. MEDICATIONS Please STOP taking Toprol XL 175. You may now START taking Toprol XL 200 once a day by mouth. FOLLOW UP Please follow up with your ammunition specialist, Dr. Muñoz, within 1 week for further evaluation of your heart. Please follow up with your primary care physician, Dr. Kern, within 1 week. Referrals: David Kern MD [Primary Care Provider] - 1 Week Ashlyn Muñoz MD [Non Staff, Medical] - 1 Week Disposition: HOME - Home Medications Comprehensive Discharge Medication List: Ambulatory Orders Atorvastatin Ca [Lipitor] 40 mg PO HS 08/06/15 Omeprazole [Prilosec (RX)] 40 mg PO DAILY 08/06/15 Rivaroxaban [Xarelto -] 20 mg PO DAILY 08/06/15 Budesonide/Formeterol Fumarate [SYMBICORT 80/4.5mcg -] 2 inh PO BID #1 cannister 03/31/19 Furosemide [Lasix] 40 mg PO DAILY 04/21/19 Lisinopril [Prinivil] 20 mg PO DAILY tablet 04/22/19 Metoprolol Succinate [Toprol XL -] 200 mg PO DAILY #30 tab.sr.24h 04/22/19 This patient is new to me today: Yes Date on this admission: 04/24/19 Emergency Visit: Yes ED Registration Date: 04/21/19 Care time: The patient presented to the Emergency Department on the above date and was hospitalized for further evaluation of their emergent condition. Critical Care patient: No - Discharge Referral Referred to [facility] Med P.C.: No
[2019-04-22 15:08] VITALS: BP 98/65; TEMP 98
[2019-04-22 15:09] VITALS: PULSE 97
== END 2019-04-22 15:21 | disposition home or self-care (01) | DRG 194 ==
LOC: JER 10:20 → JERBED 12:46 → J4W 16:26
DX: I13.0 Hypertensive heart and chronic kidney disease with heart failure and stage 1 through stage 4 chronic kidney disease, or unspecified chronic kidney disease (principal); J44.9 Chronic obstructive pulmonary disease, unspecified; I25.10 Atherosclerotic heart disease of native coronary artery without angina pectoris; I51.7 Cardiomegaly; E87.3 Alkalosis; I50.23 Acute on chronic systolic (congestive) heart failure; E78.5 Hyperlipidemia, unspecified; K21.9 Gastro-esophageal reflux disease without esophagitis; I48.91 Unspecified atrial fibrillation; N18.9 Chronic kidney disease, unspecified; E83.42 Hypomagnesemia; I42.9 Cardiomyopathy, unspecified; Z68.41 Body mass index [BMI] 40.0-44.9, adult; E66.9 Obesity, unspecified; J96.10 Chronic respiratory failure, unspecified whether with hypoxia or hypercapnia
CPT/HCPCS: 36415; 71045-TC-FY; 80048; 80053; 82803; 83735; 83880; 84100; 84484; 85025; 85610; 85730; 93005; 93010; 93306-TC; 97116-GP; 97161-GP; 99284-25

== ENCOUNTER 2021-01-08 08:24 | Emergency (ER) | payer OTHER ==
[2021-01-08 09:00] VITALS: BP 126/87; PULSE 85; TEMP 98.4; BMI 41.9
[2021-01-08] MEDS ORDERED: ACETAMINOPHEN 500 MG TABLET (FP) PO ONE (09:29)
[2021-01-08] MEDS ORDERED: CYCLOBENZAPRINE HCL 10 MG TABLET (FP) PO ONE (09:29)
[2021-01-08] MEDS ORDERED: CYCLOBENZAPRINE HCL 10 MG TABLET (FP) ONE (09:42)
[2021-01-08] MEDS ORDERED: ACETAMINOPHEN 500 MG TABLET (FP) ONE (09:42)
== END 2021-01-08 09:47 | disposition home or self-care (01) ==
LOC: JER 08:24
DX: M54.5 Low back pain (principal)
CPT/HCPCS: 99283-25

== ENCOUNTER 2022-04-01 12:43 | Emergency (ER) | payer OTHER ==
[2022-04-01 13:06] VITALS: BP 121/75; PULSE 89; TEMP 98.7; BMI 44.4
[2022-04-01] MEDS ORDERED: ACETAMINOPHEN 325 MG TABLET (FP) PO ONE (14:18)
[2022-04-01] MEDS ORDERED: predniSONE 20 MG TABLET (UD) PO ONE (14:18)
[2022-04-01] MEDS ORDERED: ACETAMINOPHEN 325 MG TABLET (FP) ONE (14:26)
[2022-04-01] MEDS ORDERED: predniSONE 20 MG TABLET (UD) ONE (14:26)
== END 2022-04-01 15:00 | disposition home or self-care (01) ==
LOC: JER 12:43
DX: M25.521 Pain in right elbow (principal)
CPT/HCPCS: 73070-TC-RT-FY; 99283-25

== ENCOUNTER 2022-07-25 13:53 | Emergency (ER) | payer OTHER ==
[2022-07-25 14:21] VITALS: BP 120/79; PULSE 95; RESP 19; TEMP 98; BMI 43.5
== END 2022-07-25 15:46 | disposition home or self-care (01) ==
LOC: JER 13:53 → JERFT 13:53
DX: M77.31 Calcaneal spur, right foot (principal)
CPT/HCPCS: 73630-TC-RT-FY; 99283-25

== ENCOUNTER 2022-09-28 15:55 | Emergency (ER) | payer OTHER ==
[2022-09-28 15:59] VITALS: BP 131/72; PULSE 96; RESP 18; TEMP 98; BMI 43.2
[2022-09-28 18:26] LABS: EOS % 1.8 % (0-4.5); HEMATOCRIT 52.1 % (35.4-49); HEMOGLOBIN 17.2 GM/dL (11.7-16.9); LYMPH % 16.2 % (8-40); MEAN CELL VOLUME 87.7 fl (80-96); MEAN PLT VOLUME 9.3 fl (7.5-11.1); MONO % 9.3 % (3.8-10.2); NEUT % 71.7 % (42.8-82.8); PLATELET COUNT 238 10^3/uL (134-434); RBC 5.95 M/mm3 (4.00-5.60); RDW 13.9 % (11.9-15.9); WHITE BLOOD COUNT 11.4 K/mm3 (4.0-10.0)
[2022-09-28 18:36] LABS: BLOOD UREA NITROGEN 12.5 mg/dL (7-18); CALCIUM 8.1 mg/dL (8.5-10.1)
[2022-09-28 18:37] LABS: ALBUMIN 3.3 g/dl (3.4-5.0)
[2022-09-28 18:39] LABS: CREATININE 0.9 mg/dL (0.55-1.3)
[2022-09-28 18:41] LABS: BILIRUBIN,TOTAL 0.4 mg/dL (0.2-1)
[2022-09-28] MEDS ORDERED: POTASSIUM CHLORIDE ORAL LIQUID 20 MEQ/15 ML PO ONE (19:52)
[2022-09-28] MEDS ORDERED: POTASSIUM CHLORIDE ORAL LIQUID 20 MEQ/15 ML ONE (20:09)
== END 2022-09-28 22:26 | disposition home or self-care (01) ==
LOC: JER 15:55
DX: R10.84 Generalized abdominal pain (principal)
CPT/HCPCS: 0241U-QW; 36415; 71046-TC-FY; 74177-TC; 76705-TC; 80053; 83690; 84484; 85025; 93005; 93010; 99285-25; Q9967

== ENCOUNTER 2022-10-08 01:28 | Observation (INO) | payer OTHER ==
[2022-10-08 01:52] VITALS: BMI 44.4
[2022-10-08 02:40] LABS: BASO % 1.4 % (0-2.0); EOS % 2.6 % (0-4.5); HEMATOCRIT 46.9 % (35.4-49); HEMOGLOBIN 15.9 GM/dL (11.7-16.9); LYMPH % 14.5 % (8-40); MCH 29.8 pg (25.7-33.7); MCHC 33.9 g/dl (32.0-35.9); MEAN PLT VOLUME 8.7 fl (7.5-11.1); MONO % 7.5 % (3.8-10.2); PLATELET COUNT 241 10^3/uL (134-434); RBC 5.33 M/mm3 (4.00-5.60); RDW 13.6 % (11.9-15.9); WHITE BLOOD COUNT 12.4 K/mm3 (4.0-10.0)
[2022-10-08 03:03] LABS: CALCIUM 8.2 mg/dL (8.5-10.1)
[2022-10-08 03:04] LABS: ALBUMIN 3.1 g/dl (3.4-5.0); BLOOD UREA NITROGEN 14.5 mg/dL (7-18); MAGNESIUM 1.6 mg/dL (1.8-2.4)
[2022-10-08 03:08] LABS: TOT PROT 6.6 g/dl (6.4-8.2)
[2022-10-08 03:09] LABS: BILIRUBIN,TOTAL 0.2 mg/dL (0.2-1)
[2022-10-08] MEDS ORDERED: MECLIZINE HCL 25 MG TABLET (FP) PO ONE (03:10)
[2022-10-08] MEDS ORDERED: MECLIZINE HCL 25 MG TABLET (FP) ONE (03:15)
[2022-10-08] MEDS ORDERED: FUROSEMIDE 40 MG/4 ML INJECTABLE VIAL IVPUSH ONE (06:12)
[2022-10-08] MEDS ORDERED: FUROSEMIDE 40 MG/4 ML INJECTABLE VIAL ONE (06:20)
[2022-10-08] MEDS ORDERED: MAGNESIUM SULF 50% (8.12 MEQ/2 ML-1 GM VIAL) IVPB ONE ×2 (07:30→13:12)
[2022-10-08] MEDS ORDERED: DIGOXIN 0.25 MG TABLET ONE (08:00)
[2022-10-08] MEDS ORDERED: FUROSEMIDE 40 MG TABLET (FP) ONE (08:00)
[2022-10-08] MEDS ORDERED: MAGNESIUM 1GM/D5W - 1 GM/100 ML IVPB IVPB ONE (08:03)
[2022-10-08 08:06] LABS: BASO % 0.8 % (0-2.0); EOS % 2.7 % (0-4.5); HEMATOCRIT 47.9 % (35.4-49); HEMOGLOBIN 16.2 GM/dL (11.7-16.9); LYMPH % 19.2 % (8-40); MCH 29.6 pg (25.7-33.7); MCHC 33.8 g/dl (32.0-35.9); MEAN CELL VOLUME 87.4 fl (80-96); MEAN PLT VOLUME 8.9 fl (7.5-11.1); MONO % 7.2 % (3.8-10.2); NEUT % 70.1 % (42.8-82.8); PLATELET COUNT 254 10^3/uL (134-434); RBC 5.49 M/mm3 (4.00-5.60); RDW 13.8 % (11.9-15.9)
[2022-10-08 08:26] LABS: CALCIUM 8.3 mg/dL (8.5-10.1)
[2022-10-08 08:27] LABS: ALBUMIN 3.2 g/dl (3.4-5.0); BLOOD UREA NITROGEN 14.2 mg/dL (7-18); MAGNESIUM 1.7 mg/dL (1.8-2.4)
[2022-10-08] MEDS ORDERED: MAGNESIUM SULFATE IN WATER 2 GM/50 ML IVPB IVPB ONE (08:29)
[2022-10-08 08:30] LABS: CREATININE 0.9 mg/dL (0.55-1.3); PHOSPHOROUS 3.9 mg/dL (2.5-4.9)
[2022-10-08 08:31] LABS: TOT PROT 6.8 g/dl (6.4-8.2)
[2022-10-08 08:32] LABS: BILIRUBIN,TOTAL 0.3 mg/dL (0.2-1)
[2022-10-08 08:36] LABS: N-TERMINAL BNP 260.8 pg/ml (5-125)
[2022-10-08] MEDS: SACUBITRIL/VALSARTAN 49 MG-51 MG TABLET PO SCH ×2 (09:11→23:39)
[2022-10-08] MEDS: DIGOXIN 0.25 MG TABLET PO SCH (09:11)
[2022-10-08] MEDS: FUROSEMIDE 40 MG TABLET (FP) PO SCH (09:12)
[2022-10-08] MEDS ORDERED: RIVAROXABAN 20 MG TABLET PO SCH (10:00)
[2022-10-08] MEDS ORDERED: MECLIZINE HCL 25 MG TABLET (FP) PO PRN (10:00)
[2022-10-08] MEDS ORDERED: ATORVASTATIN CA 40 MG TABLET (FP) PO SCH (22:00)
[2022-10-08] MEDS ORDERED: ATORVASTATIN CA 40 MG TABLET (FP) ONE (23:38)
[2022-10-09 08:40] LABS: HEMATOCRIT 46.1 % (35.4-49); HEMOGLOBIN 15.8 GM/dL (11.7-16.9); MCH 30.1 pg (25.7-33.7); MCHC 34.2 g/dl (32.0-35.9); MEAN CELL VOLUME 87.9 fl (80-96); MEAN PLT VOLUME 8.9 fl (7.5-11.1); PLATELET COUNT 229 10^3/uL (134-434); RBC 5.25 M/mm3 (4.00-5.60); RDW 13.7 % (11.9-15.9); WHITE BLOOD COUNT 11.5 K/mm3 (4.0-10.0)
[2022-10-09 09:14] LABS: CALCIUM 8.3 mg/dL (8.5-10.1)
[2022-10-09 09:16] LABS: BLOOD UREA NITROGEN 12.4 mg/dL (7-18)
[2022-10-09 09:18] LABS: CREATININE 0.7 mg/dL (0.55-1.3); PHOSPHOROUS 3.6 mg/dL (2.5-4.9)
[2022-10-09] MEDS: DIGOXIN 0.25 MG TABLET PO SCH (10:41)
[2022-10-09] MEDS: SACUBITRIL/VALSARTAN 49 MG-51 MG TABLET PO SCH (10:42)
[2022-10-09] MEDS: FUROSEMIDE 40 MG TABLET (FP) PO SCH (10:42)
[2022-10-09] MEDS ORDERED: metoPROLOL SUCCINATE 25 MG TAB.SR.24H (FP) PO ONE (12:00)
[2022-10-09 12:34] VITALS: RESP 22
[2022-10-09 14:12] VITALS: BP 135/70; PULSE 88; TEMP 97.9
[2022-10-09] MEDS ORDERED: RIVAROXABAN 20 MG TABLET PO SCH (18:00)
== END 2022-10-09 14:54 | disposition home or self-care (01) ==
LOC: JER 01:28 → UNDOADMOB 04:11 → JERBED 04:11 → INTOOBSV 04:11 → JERBED 05:42 → J6W 23:47
PROVIDERS: ADMIT Internal Medicine; ATTEND Internal Medicine
PROC: 3E033GC Introduction of Other Therapeutic Substance into Peripheral Vein, Percutaneous Approach (ICD-10-PCS; principal; 2022-10-08)
DX: I48.91 Unspecified atrial fibrillation (principal); J44.9 Chronic obstructive pulmonary disease, unspecified; I11.0 Hypertensive heart disease with heart failure; E66.01 Morbid (severe) obesity due to excess calories; Z68.41 Body mass index [BMI] 40.0-44.9, adult; R55 Syncope and collapse; E78.5 Hyperlipidemia, unspecified; Z29.8 Encounter for other specified prophylactic measures; Z79.01 Long term (current) use of anticoagulants
CPT/HCPCS: 0241U-QW; 36415; 70450-TC; 71045-TC-FY; 80048; 80053; 80061; 83036; 83735; 83880; 84100; 84443; 84484; 85025; 85027; 93005; 93010; 93306-TC; 96374; 96375; 99285-25; G0378

== ENCOUNTER 2022-10-19 20:41 | Inpatient (IN) | payer OTHER ==
[2022-10-19] MEDS ORDERED: LACTATED RINGERS SOLUTION 1000 ML INFUS.BAG IV ONE (21:28)
[2022-10-19] MEDS ORDERED: METOCLOPRAMIDE HCL INJECTION 10 MG/2 ML VIAL IVPUSH ONE (21:28)
[2022-10-19] MEDS ORDERED: METOCLOPRAMIDE HCL INJECTION 10 MG/2 ML VIAL ONE (21:34)
[2022-10-19] MEDS ORDERED: MECLIZINE HCL 25 MG TABLET (FP) PO ONE (22:07)
[2022-10-19 22:20] LABS: BASO % 0.9 % (0-2.0); EOS % 4.9 % (0-4.5); HEMATOCRIT 52.4 % (35.4-49); HEMOGLOBIN 17.5 GM/dL (11.7-16.9); MCH 29.6 pg (25.7-33.7); MCHC 33.3 g/dl (32.0-35.9); MEAN CELL VOLUME 88.9 fl (80-96); MEAN PLT VOLUME 9.2 fl (7.5-11.1); MONO % 8.8 % (3.8-10.2); NEUT % 71.4 % (42.8-82.8); PLATELET COUNT 262 10^3/uL (134-434); RDW 13.5 % (11.9-15.9); WHITE BLOOD COUNT 12.4 K/mm3 (4.0-10.0)
[2022-10-19 22:22] LABS: PH,URINE 5.5 (5.0-8.0); URINE APPEARANCE CLEAR; URINE BILIRUBIN NEGATIVE (NEGATIVE); URINE COLOR YELLOW; URINE GLUCOSE (UA) NEGATIVE (NEGATIVE); URINE KETONE NEGATIVE (NEGATIVE); URINE LEUK ESTERASE NEGATIVE (NEGATIVE); URINE NITRITE NEGATIVE (NEGATIVE); URINE PROTEIN NEGATIVE (NEGATIVE); URINE UROBILINOGEN 0.2 mg/dL (0.2-1.0)
[2022-10-19 22:29] LABS: INR 1.86 (0.83-1.09); PROTHROMBIN TIME (PATIENT) 21.5 SEC (9.7-13.0)
[2022-10-19 22:32] LABS: ACTIVATED PTT 75.5 SECONDS (25.2-36.5)
[2022-10-19 22:42] LABS: ALBUMIN 3.5 g/dl (3.4-5.0); CALCIUM 8.6 mg/dL (8.5-10.1)
[2022-10-19 22:43] LABS: BLOOD UREA NITROGEN 11.4 mg/dL (7-18)
[2022-10-19 22:46] LABS: CREATININE 0.9 mg/dL (0.55-1.3)
[2022-10-19 22:47] LABS: BILIRUBIN,TOTAL 0.4 mg/dL (0.2-1); TOT PROT 7.7 g/dl (6.4-8.2)
[2022-10-19] MEDS ORDERED: MECLIZINE HCL 25 MG TABLET (FP) ONE (23:53)
[2022-10-20] MEDS ORDERED: AZITHROMYCIN IVPB 500 MG in DEXTROSE 5%-WATER - 250 ML IVPB ONE
[2022-10-20] MEDS ORDERED: CEFTRIAXONE 1 GM in DEXTROSE 5%-WATER - 100 ML IVPB ONE
[2022-10-20] MEDS ORDERED: AZITHROMYCIN IVPB 500 MG/250 ML BAG IVPB ONE (01:48)
[2022-10-20] MEDS ORDERED: CEFTRIAXONE 1 GM/50 ML BAG ONE (01:48)
[2022-10-20 07:59] LABS: BASO % 0.7 % (0-2.0); EOS % 4.3 % (0-4.5); HEMATOCRIT 47.8 % (35.4-49); HEMOGLOBIN 16.1 GM/dL (11.7-16.9); LYMPH % 15.4 % (8-40); MCH 29.9 pg (25.7-33.7); MCHC 33.7 g/dl (32.0-35.9); MEAN CELL VOLUME 88.7 fl (80-96); MEAN PLT VOLUME 9.4 fl (7.5-11.1); MONO % 7.7 % (3.8-10.2); NEUT % 71.9 % (42.8-82.8); PLATELET COUNT 224 10^3/uL (134-434); RBC 5.39 M/mm3 (4.00-5.60); RDW 13.6 % (11.9-15.9); WHITE BLOOD COUNT 12.2 K/mm3 (4.0-10.0)
[2022-10-20] MEDS: INSULIN SLIDING SCALE (NOVOLOG) 1 VIAL SQ SCH ×4 (08:13→22:43)
[2022-10-20 08:22] LABS: ALBUMIN 3.1 g/dl (3.4-5.0); BLOOD UREA NITROGEN 10.9 mg/dL (7-18); CALCIUM 8.5 mg/dL (8.5-10.1)
[2022-10-20 08:23] LABS: MAGNESIUM 1.9 mg/dL (1.8-2.4)
[2022-10-20 08:25] LABS: CREATININE 0.8 mg/dL (0.55-1.3)
[2022-10-20 08:26] LABS: PHOSPHOROUS 3.9 mg/dL (2.5-4.9)
[2022-10-20 08:28] LABS: BILIRUBIN,TOTAL 0.6 mg/dL (0.2-1); TOT PROT 6.5 g/dl (6.4-8.2)
[2022-10-20] MEDS ORDERED: PANTOPRAZOLE 40 MG TABLET PO ONE (08:51)
[2022-10-20] MEDS ORDERED: DIGOXIN 0.25 MG TABLET ONE (08:51)
[2022-10-20] MEDS ORDERED: FUROSEMIDE 40 MG TABLET (FP) ONE (08:51)
[2022-10-20] MEDS: PANTOPRAZOLE 40 MG TABLET PO SCH (09:00)
[2022-10-20] MEDS: DIGOXIN 0.25 MG TABLET PO SCH (09:00)
[2022-10-20] MEDS: FUROSEMIDE 40 MG TABLET (FP) PO SCH (09:00)
[2022-10-20] MEDS ORDERED: ALBUTEROL SO4 HFA INHALER IH PRN (11:08)
[2022-10-20 11:36] LABS: N-TERMINAL BNP 172.3 pg/ml (5-125)
[2022-10-20] MEDS: SACUBITRIL/VALSARTAN 49 MG-51 MG TABLET PO SCH (14:54)
[2022-10-20] MEDS: BUDESONIDE/FORMETEROL FUMARATE 80/4.5 mcg INHALER IH SCH (14:55)
[2022-10-20] MEDS ORDERED: methylPREDNISolone NA SUCC 40 MG/1 ML VIAL ONE (16:15)
[2022-10-20] MEDS: ALBUTEROL SO4 2.5/IPRATROPIUM 0.5 INH SOL 3 ML VIAL.NEB. NEB SCH ×2 (16:21→20:05)
[2022-10-20] MEDS: methylPREDNISolone NA SUCC 40 MG/1 ML VIAL IVPUSH SCH (16:21)
[2022-10-20 21:56] VITALS: RESP 20; BMI 42.8
[2022-10-20] MEDS: ATORVASTATIN CA 40 MG TABLET (FP) PO SCH (22:39)
[2022-10-20] MEDS: RIVAROXABAN 20 MG TABLET PO SCH (22:41)
[2022-10-21] MEDS: SACUBITRIL/VALSARTAN 49 MG-51 MG TABLET PO SCH ×3 (00:53→21:41)
[2022-10-21] MEDS: BUDESONIDE/FORMETEROL FUMARATE 80/4.5 mcg INHALER IH SCH ×3 (00:53→21:42)
[2022-10-21] MEDS: methylPREDNISolone NA SUCC 40 MG/1 ML VIAL IVPUSH SCH ×2 (02:00→09:43)
[2022-10-21] MEDS: INSULIN SLIDING SCALE (NOVOLOG) 1 VIAL SQ SCH ×4 (06:45→21:47)
[2022-10-21 07:36] LABS: HEMOGLOBIN 17.2 GM/dL (11.7-16.9); MCH 29.6 pg (25.7-33.7); MCHC 33.7 g/dl (32.0-35.9); MEAN CELL VOLUME 87.9 fl (80-96); MEAN PLT VOLUME 9.4 fl (7.5-11.1); PLATELET COUNT 240 10^3/uL (134-434); RBC 5.81 M/mm3 (4.00-5.60); RDW 13.3 % (11.9-15.9); WHITE BLOOD COUNT 16.3 K/mm3 (4.0-10.0)
[2022-10-21 08:01] LABS: CALCIUM 9.1 mg/dL (8.5-10.1)
[2022-10-21 08:02] LABS: BLOOD UREA NITROGEN 18.8 mg/dL (7-18)
[2022-10-21 08:05] LABS: CREATININE 0.8 mg/dL (0.55-1.3)
[2022-10-21] MEDS: ALBUTEROL SO4 2.5/IPRATROPIUM 0.5 INH SOL 3 ML VIAL.NEB. NEB SCH ×3 (08:30→20:05)
[2022-10-21] MEDS: PANTOPRAZOLE 40 MG TABLET PO SCH (09:42)
[2022-10-21] MEDS: FUROSEMIDE 40 MG TABLET (FP) PO SCH (09:42)
[2022-10-21] MEDS: DIGOXIN 0.25 MG TABLET PO SCH (09:42)
[2022-10-21] MEDS: AZITHROMYCIN IVPB 500 MG/250 ML BAG IVPB SCH (09:45)
[2022-10-21 10:23] LABS: ANISOCYTOSIS 0; HELMET CELLS 0; HOWELL-JOLLY BODIES 0; MACROCYTOSIS 0; OVALOCYTE 0; ROULEAU 0; SICKELED CELLS 0; TARGET CELLS 0; TEAR DROP CELLS 0; TOXIC GRANULATION 0
[2022-10-21] MEDS: RIVAROXABAN 20 MG TABLET PO SCH (17:00)
[2022-10-21] MEDS: ATORVASTATIN CA 40 MG TABLET (FP) PO SCH (21:41)
[2022-10-22] MEDS: INSULIN SLIDING SCALE (NOVOLOG) 1 VIAL SQ SCH ×2 (06:36→11:14)
[2022-10-22] MEDS: ALBUTEROL SO4 2.5/IPRATROPIUM 0.5 INH SOL 3 ML VIAL.NEB. NEB SCH ×2 (07:38→13:53)
[2022-10-22 08:23] LABS: HEMATOCRIT 50.1 % (35.4-49); HEMOGLOBIN 16.1 GM/dL (11.7-16.9); MCH 29.1 pg (25.7-33.7); MCHC 32.2 g/dl (32.0-35.9); MEAN CELL VOLUME 90.4 fl (80-96); MEAN PLT VOLUME 9.5 fl (7.5-11.1); PLATELET COUNT 236 10^3/uL (134-434); RBC 5.55 M/mm3 (4.00-5.60); RDW 13.5 % (11.9-15.9); WHITE BLOOD COUNT 20.9 K/mm3 (4.0-10.0)
[2022-10-22 09:25] LABS: ALBUMIN 3.1 g/dl (3.4-5.0); BLOOD UREA NITROGEN 20.9 mg/dL (7-18); CALCIUM 8.8 mg/dL (8.5-10.1); MAGNESIUM 2.1 mg/dL (1.8-2.4)
[2022-10-22 09:28] LABS: CREATININE 0.8 mg/dL (0.55-1.3); PHOSPHOROUS 5.5 mg/dL (2.5-4.9)
[2022-10-22 09:29] LABS: TOT PROT 6.6 g/dl (6.4-8.2)
[2022-10-22 09:30] LABS: BILIRUBIN,TOTAL 0.4 mg/dL (0.2-1)
[2022-10-22] MEDS ORDERED: predniSONE 20 MG TABLET (UD) PO SCH (10:00)
[2022-10-22] MEDS: AZITHROMYCIN IVPB 500 MG/250 ML BAG IVPB SCH (10:52)
[2022-10-22] MEDS: DIGOXIN 0.25 MG TABLET PO SCH (10:52)
[2022-10-22] MEDS: PANTOPRAZOLE 40 MG TABLET PO SCH (10:53)
[2022-10-22] MEDS: FUROSEMIDE 40 MG TABLET (FP) PO SCH (10:53)
[2022-10-22] MEDS: SACUBITRIL/VALSARTAN 49 MG-51 MG TABLET PO SCH (10:53)
[2022-10-22] MEDS: BUDESONIDE/FORMETEROL FUMARATE 80/4.5 mcg INHALER IH SCH (10:54)
[2022-10-22 15:26] VITALS: BP 112/65; PULSE 82; TEMP 98.7
== END 2022-10-22 17:22 | disposition home or self-care (01) | DRG 140 ==
LOC: JER 20:41 → JERBED 10-20 00:17 → J4W 10-20 19:24
PROVIDERS: ADMIT Internal Medicine; ATTEND Internal Medicine
DX: J43.9 Emphysema, unspecified (principal); I25.10 Atherosclerotic heart disease of native coronary artery without angina pectoris; I48.0 Paroxysmal atrial fibrillation; E66.01 Morbid (severe) obesity due to excess calories; Z68.41 Body mass index [BMI] 40.0-44.9, adult; J18.9 Pneumonia, unspecified organism; G47.33 Obstructive sleep apnea (adult) (pediatric); D75.1 Secondary polycythemia; I11.0 Hypertensive heart disease with heart failure; I50.32 Chronic diastolic (congestive) heart failure
CPT/HCPCS: 0241U-QW; 36415; 70450-TC; 71045-TC-FY; 71250-TC; 80048; 80053; 80162; 81003; 82962; 83735; 83880; 84100; 84484; 85025; 85027; 85610; 85730; 93005; 93010; 94640; 94761; 99285-25

== ENCOUNTER 2023-02-16 20:22 | Emergency (ER) | payer OTHER ==
[2023-02-16 20:29] VITALS: TEMP 98; BMI 40.5
[2023-02-16] MEDS ORDERED: METOCLOPRAMIDE HCL INJECTION 10 MG/2 ML VIAL IVPUSH ONE (20:54)
[2023-02-16] MEDS ORDERED: ACETAMINOPHEN 1000 MG/100 ML BAG IVPB ONE (20:54)
[2023-02-16] MEDS ORDERED: SODIUM CHLORIDE 0.9% 500 ML INFUS.BAG IV ONE (20:54)
[2023-02-16] MEDS ORDERED: ACETAMINOPHEN INJECTION 100 ML IVPB ONE (21:09)
[2023-02-16] MEDS ORDERED: METOCLOPRAMIDE HCL INJECTION 10 MG/2 ML VIAL ONE (21:09)
[2023-02-16 21:55] LABS: BASO % 1.1 % (0-2.0); EOS % 3.6 % (0-4.5); HEMATOCRIT 42.3 % (35.4-49); HEMOGLOBIN 14.9 GM/dL (11.7-16.9); LYMPH % 16.4 % (8-40); MCH 30.6 pg (25.7-33.7); MCHC 35.1 g/dl (32.0-35.9); MEAN CELL VOLUME 87.2 fl (80-96); MEAN PLT VOLUME 8.7 fl (7.5-11.1); MONO % 10.3 % (3.8-10.2); NEUT % 68.6 % (42.8-82.8); PLATELET COUNT 265 10^3/uL (134-434); RBC 4.86 M/mm3 (4.00-5.60); RDW 12.9 % (11.9-15.9); WHITE BLOOD COUNT 10.9 K/mm3 (4.0-10.0)
[2023-02-16 22:42] LABS: CALCIUM 8.2 mg/dL (8.5-10.1)
[2023-02-16 22:43] LABS: BLOOD UREA NITROGEN 15.8 mg/dL (7-18)
[2023-02-16 22:46] LABS: CREATININE 0.9 mg/dL (0.55-1.3)
[2023-02-16 22:47] LABS: BILIRUBIN,TOTAL 0.5 mg/dL (0.2-1); TOT PROT 6.2 g/dl (6.4-8.2)
[2023-02-16 22:50] LABS: N-TERMINAL BNP 603.6 pg/ml (5-125)
[2023-02-16] MEDS ORDERED: ALBUTEROL SO4 2.5/IPRATROPIUM 0.5 INH SOL 3 ML VIAL.NEB. NEB SCH (23:30)
[2023-02-17] MEDS ORDERED: ALBUTEROL SO4 2.5/IPRATROPIUM 0.5 INH SOL 3 ML VIAL.NEB. NEB ONE (00:20)
[2023-02-17 00:36] VITALS: BP 106/63
[2023-02-17 00:41] VITALS: PULSE 69; RESP 18
== END 2023-02-17 00:41 | disposition home or self-care (01) ==
LOC: JER 20:22
PROC: 3E033NZ Introduction of Analgesics, Hypnotics, Sedatives into Peripheral Vein, Percutaneous Approach (ICD-10-PCS; principal; 2023-02-16)
PROC: 3E033GC Introduction of Other Therapeutic Substance into Peripheral Vein, Percutaneous Approach (ICD-10-PCS; 2023-02-16)
DX: R51.9 Headache, unspecified (principal); R05.1 Acute cough; R42 Dizziness and giddiness; R06.02 Shortness of breath
CPT/HCPCS: 0241U-QW; 36415; 70450-TC; 71045-TC-FY; 80053; 80162; 83880; 84484; 85025; 93005; 93010; 99285-25

== ENCOUNTER 2023-04-09 19:03 | Emergency (ER) | payer OTHER ==
[2023-04-09 19:10] VITALS: BMI 39.2
[2023-04-09] MEDS ORDERED: ACETAMINOPHEN 1000 MG/100 ML BAG IVPB ONE (19:42)
[2023-04-09] MEDS ORDERED: ACETAMINOPHEN INJECTION 100 ML IVPB ONE (19:58)
[2023-04-09 20:08] LABS: BASO % 1.2 % (0-2.0); EOS % 2.2 % (0-4.5); HEMATOCRIT 45.2 % (35.4-49); LYMPH % 12.7 % (8-40); MCH 29.6 pg (25.7-33.7); MCHC 33.3 g/dl (32.0-35.9); MEAN CELL VOLUME 88.9 fl (80-96); MEAN PLT VOLUME 9.2 fl (7.5-11.1); MONO % 9.3 % (3.8-10.2); NEUT % 74.6 % (42.8-82.8); PLATELET COUNT 256 10^3/uL (134-434); RBC 5.08 M/mm3 (4.00-5.60); RDW 13.4 % (11.9-15.9); WHITE BLOOD COUNT 13.1 K/mm3 (4.0-10.0)
[2023-04-09 20:31] LABS: POTASSIUM 4.7 mmol/L (3.5-5.1)
[2023-04-09 20:33] LABS: ALBUMIN 3.4 g/dl (3.4-5.0); BLOOD UREA NITROGEN 17.1 mg/dL (7-18); CALCIUM 8.8 mg/dL (8.5-10.1); MAGNESIUM 1.7 mg/dL (1.8-2.4)
[2023-04-09 20:38] LABS: BILIRUBIN,TOTAL 0.5 mg/dL (0.2-1); TOT PROT 6.8 g/dl (6.4-8.2)
[2023-04-09 20:49] LABS: N-TERMINAL BNP 460.9 pg/ml (5-125)
[2023-04-09] MEDS ORDERED: AZITHROMYCIN IVPB 500 MG in DEXTROSE 5%-WATER - 250 ML IVPB ONE (21:03)
[2023-04-09] MEDS ORDERED: AZITHROMYCIN IVPB 500 MG/250 ML BAG IVPB ONE (21:12)
[2023-04-09 22:05] VITALS: BP 126/78; PULSE 82; RESP 20; TEMP 97.8
== END 2023-04-09 22:05 | disposition home or self-care (01) ==
LOC: JER 19:03
PROC: 3E03329 Introduction of Other Anti-infective into Peripheral Vein, Percutaneous Approach (ICD-10-PCS; principal; 2023-04-09)
PROC: 3E033GC Introduction of Other Therapeutic Substance into Peripheral Vein, Percutaneous Approach (ICD-10-PCS; 2023-04-09)
DX: R07.9 Chest pain, unspecified (principal); R05.9 Cough, unspecified; R09.3 Abnormal sputum; J18.9 Pneumonia, unspecified organism; Z20.822 Contact with and (suspected) exposure to COVID-19
CPT/HCPCS: 0241U-QW; 36415; 71046-TC-FY; 80053; 83735; 83880; 84484; 85025; 93005; 93010; 99285-25

== ENCOUNTER 2023-11-04 19:39 | Observation (INO) | payer OTHER ==
[2023-11-04 19:51] VITALS: BMI 40.5
[2023-11-04] MEDS ORDERED: ACETAMINOPHEN 1000 MG/100 ML BAG IVPB ONE (22:04)
[2023-11-04] MEDS ORDERED: SODIUM CHLORIDE 0.9% 500 ML INFUS.BAG IV ONE (22:07)
[2023-11-04] MEDS ORDERED: ACETAMINOPHEN INJECTION 100 ML IVPB ONE (22:47)
[2023-11-04 23:06] LABS: BASO % 0.4 % (0-2.0); EOS % 1.6 % (0-4.5); HEMATOCRIT 46.7 % (35.4-49); HEMOGLOBIN 15.7 GM/dL (11.7-16.9); LYMPH % 8.4 % (8-40); MCH 29.6 pg (25.7-33.7); MCHC 33.7 g/dl (32.0-35.9); MEAN CELL VOLUME 87.8 fl (80-96); MEAN PLT VOLUME 8.9 fl (7.5-11.1); MONO % 9.7 % (3.8-10.2); NEUT % 79.9 % (42.8-82.8); PLATELET COUNT 190 10^3/uL (134-434); RBC 5.31 M/mm3 (4.00-5.60); WHITE BLOOD COUNT 11.9 K/mm3 (4.0-10.0)
[2023-11-04] MEDS ORDERED: methylPREDNISolone NA SUCC 125 MG/2 ML VIAL IVPUSH ONE (23:30)
[2023-11-04 23:36] LABS: POTASSIUM 3.4 mmol/L (3.5-5.1)
[2023-11-04 23:38] LABS: CALCIUM 8.2 mg/dL (8.5-10.1)
[2023-11-04 23:39] LABS: ALBUMIN 3.3 g/dl (3.4-5.0); BLOOD UREA NITROGEN 9.7 mg/dL (7-18)
[2023-11-04 23:42] LABS: CREATININE 0.8 mg/dL (0.55-1.3)
[2023-11-04 23:44] LABS: BILIRUBIN,TOTAL 0.4 mg/dL (0.2-1); TOT PROT 6.6 g/dl (6.4-8.2)
[2023-11-04] MEDS ORDERED: AZITHROMYCIN IVPB 500 MG in DEXTROSE 5%-WATER - 250 ML IVPB ONE (23:50)
[2023-11-05] MEDS ORDERED: methylPREDNISolone NA SUCC 125 MG/2 ML VIAL ONE
[2023-11-05] MEDS ORDERED: AZITHROMYCIN IVPB 500 MG/250 ML BAG IVPB ONE
[2023-11-05] MEDS ORDERED: ALBUTEROL SO4 2.5/IPRATROPIUM 0.5 INH SOL 3 ML VIAL.NEB. NEB ONE
[2023-11-05] MEDS: ALBUTEROL SO4 2.5/IPRATROPIUM 0.5 INH SOL 3 ML VIAL.NEB. NEB SCH ×4 (00:11→00:57)
[2023-11-05] MEDS ORDERED: POTASSIUM CHLORIDE ORAL LIQUID 20 MEQ/15 ML PO ONE (00:43)
[2023-11-05 02:31] LABS: MAGNESIUM 1.4 mg/dL (1.8-2.4)
[2023-11-05 02:39] LABS: N-TERMINAL BNP 403.2 pg/ml (5-125)
[2023-11-05] MEDS ORDERED: ALBUTEROL SO4 2.5/IPRATROPIUM 0.5 INH SOL 3 ML VIAL.NEB. NEB PRN (02:42)
[2023-11-05] MEDS ORDERED: MAGNESIUM SULFATE IN WATER 2 GM/50 ML IVPB IVPB ONE ×2 (03:05→04:55)
[2023-11-05] MEDS ORDERED: KCL 10 MEQ IVPB 30 MEQ/300 ML INFUS.BAG IVPB ONE (03:05)
[2023-11-05] MEDS ORDERED: REMDESIVIR 200 MG in SODIUM CHLORIDE 250 ML IVPB ONE (03:15)
[2023-11-05] MEDS: MAGNESIUM 2GM/50ML STERILE WATER IVPB IVPB ONE ×2 (03:23→04:58)
[2023-11-05] MEDS: KCL 10 MEQ IVPB 10 MEQ/100 ML INFUS.BAG IVPB SCH ×3 (04:47→08:07)
[2023-11-05] MEDS ORDERED: KCL 10 MEQ IVPB 10 MEQ/100 ML INFUS.BAG IVPB ONE (07:20)
[2023-11-05 07:57] LABS: HEMATOCRIT 45.5 % (35.4-49); HEMOGLOBIN 15.4 GM/dL (11.7-16.9); MCH 30.1 pg (25.7-33.7); MCHC 33.9 g/dl (32.0-35.9); MEAN CELL VOLUME 88.9 fl (80-96); MEAN PLT VOLUME 9.6 fl (7.5-11.1); PLATELET COUNT 191 10^3/uL (134-434); RBC 5.12 M/mm3 (4.00-5.60)
[2023-11-05 08:03] LABS: URINE APPEARANCE CLEAR; URINE BILIRUBIN NEGATIVE (NEGATIVE); URINE COLOR YELLOW; URINE GLUCOSE (UA) NEGATIVE (NEGATIVE); URINE KETONE TRACE (NEGATIVE); URINE LEUK ESTERASE NEGATIVE (NEGATIVE); URINE NITRITE NEGATIVE (NEGATIVE); URINE PROTEIN TRACE (NEGATIVE)
[2023-11-05 08:18] LABS: ALBUMIN 3.1 g/dl (3.4-5.0); BLOOD UREA NITROGEN 11.4 mg/dL (7-18); PHOSPHOROUS 2.6 mg/dL (2.5-4.9)
[2023-11-05 08:19] LABS: MAGNESIUM 2.5 mg/dL (1.8-2.4); TOT PROT 6.5 g/dl (6.4-8.2)
[2023-11-05 08:20] LABS: BILIRUBIN,TOTAL 0.6 mg/dL (0.2-1)
[2023-11-05 08:21] LABS: CREATININE 0.9 mg/dL (0.55-1.3)
[2023-11-05 09:11] LABS: ANISOCYTOSIS 0; MACROCYTOSIS 0
[2023-11-05] MEDS ORDERED: DIGOXIN 0.25 MG TABLET PO SCH (10:00)
[2023-11-05] MEDS ORDERED: FLUTICASONE/UMECLIDIN/VILANTER(100-62.5-25 TRELEGY ELLIPTA) INAHLER IH SCH (10:00)
[2023-11-05] MEDS ORDERED: methylPREDNISolone NA SUCC 40 MG/1 ML VIAL IVPUSH SCH (10:00)
[2023-11-05] MEDS ORDERED: SACUBITRIL/VALSARTAN 49 MG-51 MG TABLET PO SCH (10:00)
[2023-11-05] MEDS ORDERED: PANTOPRAZOLE 20 MG TABLET PO SCH (10:00)
[2023-11-05] MEDS ORDERED: FUROSEMIDE 40 MG TABLET (FP) PO SCH (10:00)
[2023-11-05 13:08] VITALS: BP 168/78; PULSE 94; RESP 22; TEMP 98.8
[2023-11-05] MEDS ORDERED: RIVAROXABAN 20 MG TABLET PO SCH (18:00)
[2023-11-05] MEDS ORDERED: ATORVASTATIN CA 40 MG TABLET (FP) PO SCH (22:00)
[2023-11-06] MEDS ORDERED: REMDESIVIR 100 MG in SODIUM CHLORIDE 250 ML IVPB SCH (10:00)
== END 2023-11-05 13:10 | disposition home or self-care (01) ==
LOC: JER 19:39 → JERBED 11-05 00:41
PROVIDERS: ADMIT Internal Medicine; ATTEND Internal Medicine
PROC: 3E0F7GC Introduction of Other Therapeutic Substance into Respiratory Tract, Via Natural or Artificial Opening (ICD-10-PCS; principal; 2023-11-05)
PROC: 3E03329 Introduction of Other Anti-infective into Peripheral Vein, Percutaneous Approach (ICD-10-PCS; 2023-11-05)
PROC: 3E033GC Introduction of Other Therapeutic Substance into Peripheral Vein, Percutaneous Approach (ICD-10-PCS; 2023-11-05)
PROC: 3E0337Z Introduction of Electrolytic and Water Balance Substance into Peripheral Vein, Percutaneous Approach (ICD-10-PCS; 2023-11-05)
DX: U07.1 COVID-19 (principal); I25.10 Atherosclerotic heart disease of native coronary artery without angina pectoris; R06.00 Dyspnea, unspecified; R50.9 Fever, unspecified; I48.91 Unspecified atrial fibrillation; J44.1 Chronic obstructive pulmonary disease with (acute) exacerbation; I11.0 Hypertensive heart disease with heart failure; Z79.01 Long term (current) use of anticoagulants
CPT/HCPCS: 0241U-QW; 36415; 71045-TC-FY; 80053; 80162; 81003; 83735; 83880; 84100; 84484; 85025; 93005; 93010; 94640; 96365; 96367; 96375; 96376; 99285-25; G0378; J0248

== ENCOUNTER 2024-10-27 22:47 | Emergency (ER) | payer OTHER ==
[2024-10-27 23:05] VITALS: BP 152/82; PULSE 99; RESP 18; TEMP 99.1
[2024-10-28] MEDS ORDERED: ACETAMINOPHEN 325 MG TABLET (FP) ONE (00:37)
[2024-10-28] MEDS: ACETAMINOPHEN 500 MG TABLET (FP) PO ONE (00:38)
[2024-10-28 01:15] LABS: BASO % 0.6 % (0-2.0); EOS % 1.8 % (0-4.5); HEMATOCRIT 47.1 % (35.4-49); HEMOGLOBIN 15.7 GM/dL (11.7-16.9); LYMPH % 9.7 % (8-40); MCH 29.5 pg (25.7-33.7); MCHC 33.3 g/dl (32.0-35.9); MEAN CELL VOLUME 88.6 fl (80-96); MEAN PLT VOLUME 8.8 fl (7.5-11.1); MONO % 9.4 % (3.8-10.2); NEUT % 78.5 % (42.8-82.8); PLATELET COUNT 214 10^3/uL (134-434); RBC 5.31 M/mm3 (4.00-5.60); RDW 13.4 % (11.9-15.9); WHITE BLOOD COUNT 10.3 K/mm3 (4.0-10.0)
[2024-10-28] MEDS ORDERED: ALBUTEROL SO4 2.5/IPRATROPIUM 0.5 INH SOL 3 ML VIAL.NEB. NEB ONE (01:23)
[2024-10-28] MEDS: ALBUTEROL SO4 2.5/IPRATROPIUM 0.5 INH SOL 3 ML VIAL.NEB. NEB ONE (01:29)
[2024-10-28 01:49] LABS: POTASSIUM 3.5 mmol/L (3.5-5.1)
[2024-10-28 01:53] LABS: ALBUMIN 3.6 g/dl (3.4-5.0); BLOOD UREA NITROGEN 12.7 mg/dL (7-18)
[2024-10-28 01:58] LABS: BILIRUBIN,TOTAL 0.5 mg/dL (0.2-1); TOT PROT 6.8 g/dl (6.4-8.2)
[2024-10-28 04:32] LABS: N-TERMINAL BNP 663.1 pg/ml (5-125)
== END 2024-10-28 04:40 | disposition left against medical advice (07) ==
LOC: JER 22:47
PROC: 3E0F7GC Introduction of Other Therapeutic Substance into Respiratory Tract, Via Natural or Artificial Opening (ICD-10-PCS; principal; 2024-10-28)
DX: R05.9 Cough, unspecified (principal); R53.1 Weakness; M79.10 Myalgia, unspecified site; R42 Dizziness and giddiness; R51.9 Headache, unspecified; J18.9 Pneumonia, unspecified organism; R50.9 Fever, unspecified; Z20.822 Contact with and (suspected) exposure to COVID-19
CPT/HCPCS: 0241U-QW; 36415; 71046-TC-FY; 80053; 83880; 84484; 85025; 93005; 93010; 99285-25

== ENCOUNTER 2025-02-24 08:15 | Emergency (ER) | payer OTHER ==
[2025-02-24 08:29] VITALS: BMI 41.9
[2025-02-24 09:24] LABS: ABSOLUTE IMMATURE GRANULOCYTES 0.05 x10^3/uL (0.0-0.031); BASOPHILS # 0.06 x10^3/uL (0.01-0.08); EOSINOPHIL % 3.4 % (0.8-7.0); EOSINOPHILS # 0.36 x10^3/uL (0.04-0.54); HEMOGLOBIN 14.8 g/dL (13.7-17.5); MCHC 34.4 g/dl (32.3-36.5); MEAN CELL VOLUME 85.8 fl (79.0-92.2); MEAN PLT VOLUME 10.8 fl (9.4-12.4); MONOCYTE # 0.72 x10^3/uL (0.30-0.82); MONOCYTE % 6.7 % (5.3-12.2); PLATELET COUNT 229 x10^3/uL (163-337); RDW 12.2 % (12.2-16.4)
[2025-02-24 09:32] LABS: INR 1.59 (0.83-1.09); PROTHROMBIN TIME (PATIENT) 17.3 SEC (9.7-13.0)
[2025-02-24 09:34] LABS: ACTIVATED PTT 49.2 SECONDS (25.2-36.5)
[2025-02-24 09:47] LABS: POTASSIUM 3.1 mmol/L (3.5-5.1)
[2025-02-24 09:49] LABS: CALCIUM 8.8 mg/dL (8.5-10.1)
[2025-02-24 09:50] LABS: BLOOD UREA NITROGEN 12.7 mg/dL (7-18)
[2025-02-24 09:54] LABS: CREATININE 0.9 mg/dL (0.55-1.3)
[2025-02-24 09:55] LABS: BILIRUBIN,TOTAL 0.7 mg/dL (0.2-1)
[2025-02-24] MEDS ORDERED: POTASSIUM CHLORIDE ORAL LIQUID 20 MEQ/15 ML ONE (10:40)
[2025-02-24] MEDS ORDERED: MAGNESIUM 2GM/50ML STERILE WATER IVPB IVPB ONE (10:45)
[2025-02-24] MEDS ORDERED: MAGNESIUM 1GM/D5W 100ML - 100 ML IVPB IVPB SCH (10:45)
[2025-02-24] MEDS: MAGNESIUM SULF 50% (8.12 MEQ/2 ML-1 GM VIAL) IVPB ONE (10:57)
[2025-02-24] MEDS: POTASSIUM CHLORIDE ORAL LIQUID 20 MEQ/15 ML PO ONE (10:57)
[2025-02-24 12:02] VITALS: BP 132/66; PULSE 81; RESP 20; TEMP 98.1
== END 2025-02-24 12:05 | disposition home or self-care (01) ==
LOC: JER 08:15
PROC: 3E033GC Introduction of Other Therapeutic Substance into Peripheral Vein, Percutaneous Approach (ICD-10-PCS; principal; 2025-02-24)
DX: R42 Dizziness and giddiness (principal); R51.9 Headache, unspecified
CPT/HCPCS: 36415; 71046-TC-FY; 80053; 83735; 83880; 84484; 85025; 85610; 85730; 93005; 93010; 99285-25